=== PATIENT | female | born 1950 | race Caucasian/White ===

== ENCOUNTER 2020-01-10 06:43 | Outpatient (REF) | payer MEDICARE, SELFPAY ==
[2020-01-10 11:28] LABS: Hematocrit 40.5 % (37-47); Hemoglobin 13.7 g/dl (12.0-16.0); Mean Corpuscular HGB Conc 33.8 g/dl (31.0-35.0); Mean Corpuscular Hemoglobin 31.9 pg (27.0-33.0); Mean Corpuscular Volume 94.4 fL (80-98); Mean Platelet Volume 10.6 fL (9.4-12.3); Platelet Count 285 X10*3/uL (160-400); Red Blood Count 4.29 X10*6/uL (4.20-5.50); Red Cell Distribution Width 12.5 % (11.0-16.0); White Blood Count 5.2 X10*3/uL (4.8-10.8)
[2020-01-10 12:14] LABS: Thyroid Stimulating Hormone 0.75 mIU/mL (0.32-4.0)
[2020-01-10 12:15] LABS: Alanine Aminotransferase 33 U/L (0-31); Albumin Level 4.4 g/dL (3.5-5.0); Alkaline Phosphatase 100 U/L (39-117); Anion Gap 13 (12-20); Aspartate Amino Transferase 22 U/L (5-31); Bilirubin Total 0.7 mg/dL (0.0-1.0); Blood Urea Nitrogen 21 mg/dL (9-16); Calcium 8.8 mg/dL (8.4-10.2); Carbon Dioxide 25 mmol/L (22-29); Chloride 109 mmol/L (96-108); Cholesterol 178 mg/dL; Estimated Glomerular Filt Rate > 60; Glucose Fasting 116 mg/dL (60-99); HDL Cholesterol 44 mg/dL; LDL Cholesterol Calculated 110 mg/dl; Potassium 4.2 mmol/l (3.3-5.1); Sodium 143 mmol/L (135-145); Triglycerides 124 mg/dL
== END 2020-01-10 06:44 | disposition home or self-care (01) ==
LOC: HO.HMGCLDS 06:43
PROVIDERS: PCP Internal Medicine; Visit Provider Internal Medicine
DX: M65.341 Trigger finger, right ring finger (principal); I10 Essential (primary) hypertension; F17.200 Nicotine dependence, unspecified, uncomplicated
CPT/HCPCS: 36415; 80053; 80061; 84443; 85027

== ENCOUNTER 2020-07-03 06:46 | Outpatient (REF) | payer MEDICARE, SELFPAY ==
[2020-07-03 12:08] LABS: Estimated Average Glucose 114 mg/dL; Hemoglobin A1c % 5.6 %
[2020-07-03 12:16] LABS: Microalbum/Creatinine Ratio Ur 6.4 ug/mg cr
== END 2020-07-03 06:47 | disposition home or self-care (01) ==
LOC: HO.HMGCLDS 06:46
PROVIDERS: PCP Internal Medicine; Visit Provider Internal Medicine
DX: E78.5 Hyperlipidemia, unspecified (principal); I10 Essential (primary) hypertension; R73.9 Hyperglycemia, unspecified
CPT/HCPCS: 36415; 82043; 83036

== ENCOUNTER 2020-07-08 09:07 | Outpatient (REF) | payer MEDICARE, SELFPAY ==
--- NOTE | ~2020-07-08 | XR_ITS ---
EXAMINATION: XR SHOULDER, LEFT CLINICAL INFORMATION: Left shoulder pain COMPARISON: None TECHNIQUE: AP external rotation, Grashey, scapular Y, and axillary views of the left shoulder. FINDINGS: No fracture, dislocation or destructive process or erosive change. Acromioclavicular joint intact. XR/XR shoulder LT min 2V IMPRESSION: Unremarkable study.
== END 2020-07-08 09:08 | disposition home or self-care (01) ==
LOC: HO.HMGCX 09:07
PROVIDERS: PCP Internal Medicine; Visit Provider Internal Medicine
DX: M25.512 Pain in left shoulder (principal)
CPT/HCPCS: 73030

== ENCOUNTER 2020-10-20 06:49 | Outpatient (REF) | payer MEDICARE, SELFPAY ==
[2020-10-20 11:25] LABS: Alanine Aminotransferase 26 U/L (0-31); Alkaline Phosphatase 105 U/L (39-117); Anion Gap 12 (12-20); Aspartate Amino Transferase 19 U/L (5-31); Bilirubin Total 0.4 mg/dL (0.0-1.0); Blood Urea Nitrogen 15 mg/dL (9-16); Calcium 8.9 mg/dL (8.4-10.2); Carbon Dioxide 23 mmol/L (22-29); Chloride 111 mmol/L (96-108); Cholesterol 169 mg/dL; Estimated Glomerular Filt Rate > 60; Glucose Fasting 120 mg/dL (60-99); HDL Cholesterol 44 mg/dL; LDL Cholesterol Calculated 101 mg/dl; Potassium 4.2 mmol/L (3.3-5.1); Sodium 142 mmol/L (135-145); Total Protein 6.5 g/dL (6.5-8.0); Triglycerides 124 mg/dL
[2020-10-20 11:53] LABS: Thyroid Stimulating Hormone 0.76 uIU/mL (0.32-4.0)
== END 2020-10-20 06:50 | disposition home or self-care (01) ==
LOC: HO.HMGCLDS 06:49
PROVIDERS: PCP Internal Medicine; Visit Provider Internal Medicine
DX: E78.5 Hyperlipidemia, unspecified (principal); I10 Essential (primary) hypertension; R73.9 Hyperglycemia, unspecified
CPT/HCPCS: 36415; 80053; 80061; 84443

== ENCOUNTER 2021-04-18 08:18 | Outpatient (REF) | payer MEDICARE, SELFPAY ==
[2021-04-18 11:15] LABS: Hematocrit 41.7 % (37.0-47.0); Hemoglobin 13.9 g/dl (12.0-16.0); Mean Corpuscular HGB Conc 33.3 g/dl (31.0-35.0); Mean Corpuscular Hemoglobin 31.9 pg (27.0-33.0); Mean Corpuscular Volume 95.6 fL (80.0-98.0); Mean Platelet Volume 10.6 fL (9.4-12.3); Platelet Count 265 X10*3/uL (160-400); Red Blood Count 4.36 X10*6/uL (4.20-5.50); Red Cell Distribution Width 12.2 % (11.0-16.0); White Blood Count 5.5 X10*3/uL (4.8-10.8)
[2021-04-18 11:32] LABS: Alanine Aminotransferase 30 U/L (0-31); Albumin Level 4.2 g/dL (3.5-5.0); Alkaline Phosphatase 117 U/L (39-117); Anion Gap 11 (12-20); Aspartate Amino Transferase 19 U/L (5-31); Bilirubin Total 0.3 mg/dL (0.0-1.0); Blood Urea Nitrogen 18 mg/dL (9-16); Calcium 9.4 mg/dL (8.4-10.2); Carbon Dioxide 27 mmol/L (22-29); Chloride 109 mmol/L (96-108); Cholesterol 169 mg/dL; Estimated Glomerular Filt Rate > 60; Glucose Fasting 122 mg/dL (60-99); HDL Cholesterol 42 mg/dL; LDL Cholesterol Calculated 103 mg/dl; Potassium 4.4 mmol/L (3.3-5.1); Sodium 143 mmol/L (135-145); Total Protein 6.9 g/dL (6.5-8.0); Triglycerides 120 mg/dL
[2021-04-18 11:33] LABS: Estimated Average Glucose 114 mg/dL; Hemoglobin A1c % 5.6 %
[2021-04-18 11:52] LABS: Creatinine Urine 275.82 mg/dL; Microalbum/Creatinine Ratio Ur 4.7 ug/mg cr
== END 2021-04-18 08:19 | disposition home or self-care (01) ==
LOC: HO.HMGCLDS 08:18
PROVIDERS: PCP Internal Medicine; Visit Provider Internal Medicine
DX: I10 Essential (primary) hypertension (principal); E78.5 Hyperlipidemia, unspecified; R73.9 Hyperglycemia, unspecified
CPT/HCPCS: 36415; 80053; 80061; 82043; 83036; 85027

== ENCOUNTER 2021-12-05 07:42 | Outpatient (REF) | payer MEDICARE, SELFPAY ==
[2021-12-05 11:08] LABS: Hematocrit 40.2 % (37.0-47.0); Hemoglobin 13.5 g/dl (12.0-16.0); Mean Corpuscular HGB Conc 33.6 g/dl (31.0-35.0); Mean Corpuscular Hemoglobin 31.5 pg (27.0-33.0); Mean Corpuscular Volume 93.7 fL (80.0-98.0); Mean Platelet Volume 10.6 fL (9.4-12.3); Platelet Count 262 X10*3/uL (160-400); Red Blood Count 4.29 X10*6/uL (4.20-5.50); Red Cell Distribution Width 12.6 % (11.0-16.0)
[2021-12-05 11:33] LABS: Estimated Average Glucose 114 mg/dL; Hemoglobin A1c % 5.6 %
[2021-12-05 11:34] LABS: Alanine Aminotransferase 35 U/L (0-31); Albumin Level 4.1 g/dL (3.5-5.0); Alkaline Phosphatase 113 U/L (39-117); Anion Gap 14 (12-20); Aspartate Amino Transferase 21 U/L (5-31); Bilirubin Total 0.4 mg/dL (0.0-1.0); Blood Urea Nitrogen 22 mg/dL (9-16); Calcium 8.8 mg/dL (8.4-10.2); Carbon Dioxide 24 mmol/L (22-29); Chloride 108 mmol/L (96-108); Cholesterol 171 mg/dL; Estimated Glomerular Filt Rate > 60; Glucose Fasting 122 mg/dL (60-99); HDL Cholesterol 42 mg/dL; LDL Cholesterol Calculated 107 mg/dl; Potassium 4.4 mmol/L (3.3-5.1); Sodium 142 mmol/L (135-145); Total Protein 6.7 g/dL (6.5-8.0); Triglycerides 110 mg/dL
[2021-12-05 11:47] LABS: TSH reflex Free T4 0.69 uIU/mL (0.32-4.0)
== END 2021-12-05 07:43 | disposition home or self-care (01) ==
LOC: HO.HMGCLDS 07:42
PROVIDERS: PCP Internal Medicine; Visit Provider Internal Medicine
DX: E78.5 Hyperlipidemia, unspecified (principal); R73.9 Hyperglycemia, unspecified; I10 Essential (primary) hypertension
CPT/HCPCS: 36415; 80053; 80061; 83036; 84443; 85027

== ENCOUNTER 2022-06-10 08:43 | Outpatient (REF) | payer MEDICARE, SELFPAY ==
[2022-06-10 11:02] LABS: MANUAL DIFF FLAG NO
[2022-06-10 11:20] LABS: Basophils Percent Auto 0.6 % (0-2); Eosinophils Absolute Auto 0.2 X10*3/uL (0.0-0.4); Eosinophils Percent Auto 3.5 % (0-4); Hematocrit 42.9 % (37.0-47.0); Hemoglobin 14.1 g/dl (12.0-16.0); Imm Gran Abs Auto 0.01 X10*3/uL (0.00-0.03); Imm Gran Pct Auto 0.2 % (0.0-0.4); Lymphocytes Absolute Auto 2.2 X10*3/uL (1.2-4.9); Lymphocytes Percent Auto 40.5 % (20-40); Mean Corpuscular HGB Conc 32.9 g/dl (31.0-35.0); Mean Corpuscular Hemoglobin 31.3 pg (27.0-33.0); Mean Corpuscular Volume 95.1 fL (80.0-98.0); Mean Platelet Volume 10.5 fL (9.4-12.3); Monocytes Absolute Auto 0.5 X10*3/uL (0.1-1.2); Neutrophils Absolute Auto 2.5 x10*3/uL (2.0-8.3); Neutrophils Percent Auto 46.2 % (45-73); Platelet Count 277 X10*3/uL (160-400); Red Blood Count 4.51 X10*6/uL (4.20-5.50); Red Cell Distribution Width 12.3 % (11.0-16.0); White Blood Count 5.4 X10*3/uL (4.8-10.8)
[2022-06-10 11:30] LABS: Estimated Average Glucose 120 mg/dL; Hemoglobin A1C 152.2743 umol/L; Hemoglobin A1c % 5.8 %
[2022-06-10 11:57] LABS: Alanine Aminotransferase 36 U/L (0-31); Albumin Level 4.1 g/dL (3.5-5.0); Alkaline Phosphatase 116 U/L (39-117); Anion Gap 13 (12-20); Aspartate Amino Transferase 20 U/L (5-31); Bilirubin Total 0.6 mg/dL (0.0-1.0); Blood Urea Nitrogen 19 mg/dL (9-16); Calcium 8.9 mg/dL (8.4-10.2); Carbon Dioxide 26 mmol/L (22-29); Chloride 110 mmol/L (96-108); Cholesterol 170 mg/dL; Estimated Glomerular Filt Rate > 60; Glucose Fasting 141 mg/dL (60-99); HDL Cholesterol 39 mg/dL; LDL Cholesterol Calculated 105 mg/dl; Potassium 4.5 mmol/L (3.3-5.1); Sodium 144 mmol/L (135-145); Total Protein 6.6 g/dL (6.5-8.0); Triglycerides 130 mg/dL
== END 2022-06-10 08:44 | disposition home or self-care (01) ==
LOC: HO.HMGCLDS 08:43
PROVIDERS: PCP Internal Medicine; Visit Provider Internal Medicine
DX: E78.5 Hyperlipidemia, unspecified (principal); R73.9 Hyperglycemia, unspecified; I10 Essential (primary) hypertension
CPT/HCPCS: 36415; 80053; 80061; 83036; 85025

== ENCOUNTER 2022-12-09 08:34 | Outpatient (REF) | payer MEDICARE, SELFPAY ==
[2022-12-09 11:28] LABS: MANUAL DIFF FLAG NO
[2022-12-09 11:53] LABS: Basophils Percent Auto 0.6 % (0-2); Eosinophils Absolute Auto 0.2 X10*3/uL (0.0-0.4); Eosinophils Percent Auto 3.3 % (0-4); Hematocrit 41.7 % (37.0-47.0); Hemoglobin 14.3 g/dl (12.0-16.0); Imm Gran Abs Auto 0.01 X10*3/uL (0.00-0.03); Imm Gran Pct Auto 0.2 % (0.0-0.4); Lymphocytes Absolute Auto 2.3 X10*3/uL (1.2-4.9); Lymphocytes Percent Auto 41.7 % (20-40); Mean Corpuscular HGB Conc 34.3 g/dl (31.0-35.0); Mean Corpuscular Hemoglobin 32.4 pg (27.0-33.0); Mean Corpuscular Volume 94.6 fL (80.0-98.0); Mean Platelet Volume 10.5 fL (9.4-12.3); Monocytes Absolute Auto 0.5 X10*3/uL (0.1-1.2); Monocytes Percent Auto 9.8 % (2-11); Neutrophils Absolute Auto 2.4 x10*3/uL (2.0-8.3); Neutrophils Percent Auto 44.4 % (45-73); Platelet Count 251 X10*3/uL (160-400); Red Blood Count 4.41 X10*6/uL (4.20-5.50); Red Cell Distribution Width 12.2 % (11.0-16.0); White Blood Count 5.4 X10*3/uL (4.8-10.8)
[2022-12-09 12:08] LABS: Appearance Urine Cloudy; Color Urine Yellow; Glucose Urine UA Negative (Negative); Leukocyte Esterase Urine Negative (Negative); Nitrite Urine Negative (Negative); Specific Gravity - Urine >= 1.030 (1.005-1.025); Urine Blood Negative (Negative); Urine Ketones Negative (Negative); Urine Protein Negative (Neg-Trace)
[2022-12-09 12:14] LABS: Bacteria Urine None Seen (None Seen); Hyaline Casts Urine 0-2 /LPF (0-2); RBC Urine 0-2 /HPF (0-2); WBC Urine 0-5 /HPF (0-5)
[2022-12-09 12:14] LABS: Estimated Average Glucose 111 mg/dL; Hemoglobin A1c % 5.5 % (<6.0)
[2022-12-09 12:20] LABS: Alanine Aminotransferase 30 U/L (0-31); Albumin Level 4.1 g/dL (3.5-5.0); Alkaline Phosphatase 103 U/L (39-117); Anion Gap 12 (12-20); Aspartate Amino Transferase 21 U/L (5-31); Bilirubin Total 0.5 mg/dL (0.0-1.0); Blood Urea Nitrogen 20 mg/dL (9-16); Carbon Dioxide 23 mmol/L (22-29); Chloride 110 mmol/L (96-108); Estimated Glomerular Filt Rate > 60; Glucose Fasting 130 mg/dL (60-99); Potassium 4.3 mmol/L (3.3-5.1); Sodium 141 mmol/L (135-145)
[2022-12-09 12:46] LABS: Creatinine Urine 293.37 mg/dL; Microalbum/Creatinine Ratio Ur 3.7 ug/mg cr (<30)
== END 2022-12-09 08:35 | disposition home or self-care (01) ==
LOC: HO.HMGCLDS 08:34
PROVIDERS: PCP Internal Medicine; Visit Provider Internal Medicine
DX: I10 Essential (primary) hypertension (principal); R73.9 Hyperglycemia, unspecified; E78.5 Hyperlipidemia, unspecified
CPT/HCPCS: 36415; 80053; 81001; 82043; 82570; 83036; 85025

== ENCOUNTER 2022-12-13 08:42 | Outpatient (AMB) | payer MEDICARE, SELFPAY ==
[2022-12-13 08:43] VITALS: BP 136/84; PULSE 78; O2SAT 96; BMI 35.1
--- NOTE | 2022-12-13 08:43 | A.OFFPC_ITS ---
Vital Signs 12/13/22 08:43 Height 5 ft 2 in Weight 192 lb BMI 35.1 BP 136/84 Blood Pressure Location Lt brachial Position Sitting Pulse 78 Pulse Source Pulse Oximeter Pulse Oximetry (%) 96 Oxygen Delivery Method Room Air Intake Visit Reasons: 6m folow up HTN Intake Note: Pt is here today for 6 months follow up visit on HTN. Allergies No Known Allergies Allergy (Verified 12/13/22 08:45) Medication List - Last Reconciled 12/13/22 by Shelly Lopez MD atorvastatin 40 mg PO DAILY lisinopril 30 mg PO DAILY metoprolol succinate ER 50 mg PO DAILY Tobacco use date assessed: 06/16/22 Fall risk assessment: No Falls in past year Last assessed Fall Risk: 12/13/22 Dental Screening Dental Screen Date: 12/13/22 Did you have a dental visit in the last 12 months?: No Did you have a dental problem in the last 6 months where you did not have access to dental care?: No Was dental information given to patient?: Patient declined HPI 6m folow up HTN HPI Details Patient presents for the follow-up on hypertension hyperlipidemia stable on current medications. [facility] Medical History DJD (degenerative joint disease), cervical Dysthymia HTN (hypertension) Hyperglycemia Hyperlipemia Mammogram normal Normal colonoscopy Shoulder pain, left Surgical History History of hysterectomy Family History Father No problems noted. Mother History of CVA (cerebrovascular accident) Daughter No problems noted. Daughter No problems noted. Social History Housing: House Alcohol intake: never Patient Tobacco Use Status: Current everyday Tobacco user Cigarettes Per Day: 12 Years Smoked: started when 23 e-Cigarette/Vaping Use: Never Used Second Hand Smoke Exposure: No Current occupational status: retired Cognitive needs: No Hearing needs: No Vision needs: Yes Questionnaire Thrive Questionnaire Date Thrive assessed: 06/16/22 MANNIE-7 AMB Questionnaire MANNIE-7 Date MANNIE - 7 assessed: 06/16/22 Source: Developed by Drs. Petey Hernandez, AnabelTha Hendricks and colleagues, with an educational rand from [employer]. Review of Systems Const All systems reviewed & are unremarkable except as noted in HPI and below Reports no additional complaints Eyes Reports no additional complaints ENT Reports no additional complaints Card Reports no additional complaints Resp Reports no additional complaints GI Reports no additional complaints Reports no additional complaints Physical exam (Primary Care) Vital Signs: Last Vital Signs Pulse 78 12/13/22 08:43 BP 136/84 12/13/22 08:43 Pulse Ox 96 12/13/22 08:43 Oxygen Delivery Method Room Air 12/13/22 08:43 BMI result Body Mass Index 35.1 Tobacco/Smoking Status: Tobacco use Status Tobacco use date assessed 06/16/22 12/13/22 08:50 Patient Tobacco Use Status Current everyday Tobacco 12/13/22 08:50 Tobacco use type 10/23/20 13:43 e-Cigarette/Vaping Use Never Used 12/13/22 08:50 Thrive Assessment: Date of Thrive Assessment Date Thrive assessed 06/16/22 12/13/22 08:50 Const General: no acute distress HENMT General nose exam: Normal external nose present Face and sinus: Yes normal facial exam Resp Effort & Inspection: normal respiratory effort Auscultation: clear to auscultation bilaterally Cardio Rhythm: regular rhythm Heart sounds: S1 normal heart sound present and S2 normal heart sound present GI Inspection: Yes normal to inspection Assessment and Plan Assessment & Plan (1) Hyperglycemia: Comment: A1C is 5.6, cont ADA diet, exercise Code(s): R73.9 - Hyperglycemia, unspecified Plan: Continue ADA diet increase physical activity weight loss discussed with the patient . follow-up in 6 months with a fasting labs before (2) HTN (hypertension): Code(s): I10 - Essential (primary) hypertension Plan: Continue current medications (3) Hyperlipemia: Code(s): E78.5 - Hyperlipidemia, unspecified Plan: Continue statin Orders: Orders Comprehensive [place]. Panel Fast 6 Months E78.5 - Hyperlipidemia, unspecified, I10 - Essential (primary) hypertension, R73.9 - Hyperglycemia, unspecified Lipid Panel 6 Months E78.5 - Hyperlipidemia, unspecified, I10 - Essential (primary) hypertension, R73.9 - Hyperglycemia, unspecified TSH reflex Free T4 6 Months E78.5 - Hyperlipidemia, unspecified, I10 - Essential (primary) hypertension, R73.9 - Hyperglycemia, unspecified Complete Blood Count Auto Diff 6 Months E78.5 - Hyperlipidemia, unspecified, I10 - Essential (primary) hypertension, R73.9 - Hyperglycemia, unspecified Hemoglobin A1c 6 Months E78.5 - Hyperlipidemia, unspecified, I10 - Essential (primary) hypertension, R73.9 - Hyperglycemia, unspecified Microalbumin, Random (w Creat) 6 Months E78.5 - Hyperlipidemia, unspecified, I10 - Essential (primary) hypertension, R73.9 - Hyperglycemia, unspecified Medications: Refilled atorvastatin 40 mg PO DAILY 90 tabs 3RF metoprolol succinate ER 50 mg PO DAILY 90 tabs 3RF lisinopril 30 mg PO DAILY 90 tabs 3RF Coding Level of Care Code Est Pt Level 4 (07400) Diagnoses Hyperglycemia R73.9 HTN (hypertension) I10 Hyperlipemia E78.5
== END 2022-12-13 09:18 | disposition home or self-care (01) ==
PROVIDERS: Visit Provider Internal Medicine
DX: R73.9 Hyperglycemia, unspecified (principal); I10 Essential (primary) hypertension; E78.5 Hyperlipidemia, unspecified
CPT/HCPCS: 99214

== ENCOUNTER 2023-06-11 09:25 | Outpatient (REF) | payer MEDICARE, SELFPAY ==
[2023-06-11 11:55] LABS: MANUAL DIFF FLAG NO
[2023-06-11 12:00] LABS: Basophils Percent Auto 0.4 % (0-2); Eosinophils Absolute Auto 0.2 X10*3/uL (0.0-0.4); Eosinophils Percent Auto 3.6 % (0-4); Hemoglobin 13.1 g/dl (12.0-16.0); Imm Gran Abs Auto 0.02 X10*3/uL (0.00-0.03); Imm Gran Pct Auto 0.4 % (0.0-0.4); Lymphocytes Absolute Auto 1.9 X10*3/uL (1.2-4.9); Lymphocytes Percent Auto 39.9 % (20-40); Mean Corpuscular HGB Conc 34.5 g/dl (31.0-35.0); Mean Corpuscular Hemoglobin 31.6 pg (27.0-33.0); Mean Corpuscular Volume 91.6 fL (80.0-98.0); Mean Platelet Volume 10.4 fL (9.4-12.3); Monocytes Absolute Auto 0.5 X10*3/uL (0.1-1.2); Monocytes Percent Auto 9.7 % (2-11); Neutrophils Absolute Auto 2.2 x10*3/uL (2.0-8.3); Platelet Count 245 X10*3/uL (160-400); Red Blood Count 4.15 X10*6/uL (4.20-5.50); Red Cell Distribution Width 12.6 % (11.0-16.0); White Blood Count 4.7 X10*3/uL (4.8-10.8)
[2023-06-11 12:09] LABS: Estimated Average Glucose 114 mg/dL; Hemoglobin A1c % 5.6 % (<6.0)
[2023-06-11 12:45] LABS: Alanine Aminotransferase 39 U/L (0-31); Albumin Level 3.8 g/dL (3.5-5.0); Alkaline Phosphatase 97 U/L (39-117); Anion Gap 12 (12-20); Aspartate Amino Transferase 21 U/L (5-31); Bilirubin Total 0.3 mg/dL (0.0-1.0); Blood Urea Nitrogen 24 mg/dL (9-16); Carbon Dioxide 25 mmol/L (22-29); Chloride 111 mmol/L (96-108); Cholesterol 124 mg/dL (<200); Estimated Glomerular Filt Rate > 60; Glucose Fasting 118 mg/dL (60-99); HDL Cholesterol 33 mg/dL (>40); LDL Cholesterol Calculated 73 mg/dL (<100); Sodium 144 mmol/L (135-145); TSH reflex Free T4 0.21 uIU/mL (0.32-4.0); Total Protein 6.7 g/dL (6.5-8.0); Triglycerides 92 mg/dL (<150)
[2023-06-11 13:05] LABS: Creatinine Urine 250.57 mg/dL; Microalbum/Creatinine Ratio Ur 6.3 ug/mg cr (<30)
[2023-06-11 13:29] LABS: Free T4 (Free Thyroxine) 0.78 ng/dL (0.71-1.85)
== END 2023-06-11 09:26 | disposition home or self-care (01) ==
LOC: HO.HMGCLDS 09:25
PROVIDERS: PCP Internal Medicine; Visit Provider Internal Medicine
DX: R73.9 Hyperglycemia, unspecified (principal); I10 Essential (primary) hypertension; E78.5 Hyperlipidemia, unspecified
CPT/HCPCS: 36415; 80053; 80061; 82043; 82570; 83036; 84439; 84443; 85025

== ENCOUNTER 2023-06-15 08:07 | Outpatient (AMB) | payer MEDICARE, SELFPAY ==
--- NOTE | 2023-06-15 08:33 | MHC.PC.OV ---
Vital Signs 06/15/23 08:36 Height 5 ft 2 in Weight 190 lb BMI 34.7 BP 120/80 Blood Pressure Location Lt brachial Position Sitting Pulse 82 Pulse Source Pulse Oximeter Pulse Oximetry (%) 95 Oxygen Delivery Method Room Air Intake Visit Reasons: Annual PE Intake Note: Pt is here today for PE. Allergies No Known Allergies Allergy (Verified 06/15/23 08:37) Medication List - Last Reconciled 06/15/23 by Shelly Lopez MD atorvastatin 40 mg PO DAILY lisinopril 30 mg PO DAILY metoprolol succinate ER 50 mg PO DAILY Tobacco use date assessed: 06/15/23 Fall risk assessment: No Falls in past year Last assessed Fall Risk: 06/15/23 Dental Screening Dental Screen Date: 06/15/23 Did you have a dental visit in the last 12 months?: No Did you have a dental problem in the last 6 months where you did not have access to dental care?: No Was dental information given to patient?: Patient declined HPI Annual PE HPI Details Pt is for PE. [facility] Medical History (Updated 06/15/23 @ 09:08 by Shelly Lopez MD) Dysthymia Shoulder pain, left DJD (degenerative joint disease), cervical Normal colonoscopy Mammogram normal Hyperglycemia HTN (hypertension) Hyperlipemia Surgical History History of hysterectomy Family History Father No problems noted. Mother History of CVA (cerebrovascular accident) Daughter No problems noted. Daughter No problems noted. Social History Housing: House Alcohol intake: never Patient Tobacco Use Status: Current someday Tobacco user Cigarettes Per Day: 12 Years Smoked: started when 23 e-Cigarette/Vaping Use: Never Used Second Hand Smoke Exposure: No Current occupational status: retired Cognitive needs: No Hearing needs: No Vision needs: Yes Questionnaire PHQ-9 Over the last 2 weeks, how often have you been bothered by any of the following problems? 1. Little interest or pleasure in doing things: not at all 2. Feeling down, depressed, or hopeless: not at all 3. Trouble falling or staying asleep, or sleeping too much: not at all 4. Feeling tired or having little energy: not at all 5. Poor appetite or overeating: not at all 6. Feeling bad about yourself - or that you are a failure or have let yourself or your family down: not at all 7. Trouble concentrating on things, such as reading the newspaper or watching television: not at all 8. Moving or speaking so slowly that other people could have noticed. Or the opposite - being so fidgety or restless that you have been moving around a lot more than usual: not at all 9. Thoughts that you would be better off or of hurting yourself in some way: not at all Total score: 0 Depression Screening Interpretation: Negative Depression Screening Done: Yes Source: Developed by Drs. Petey Hernandez, Anabel Cr, Tha Townsend and colleagues, with an educational rand from [employer]. Thrive Questionnaire Date Thrive assessed: 06/15/23 I am a: Patient What is your living situation today?: I have a steady place to live Within the past 12 months, did the food you bought not last and you didn't have the money to get more?: Never true Within the past 12 months, did you worry whether your food would run out before you got money to buy more?: Never true Do you have trouble paying for medicines?: No Do you have trouble getting transportation to medical appointments?: No Do you have trouble paying your heating and electricity bill?: No Do you have trouble taking care of your child, family member or friend?: No Do you have trouble with day-to-day activities such as bathing, preparing meals, shopping, managing finances, etc.?: No Are you currently unemployed and looking for a job?: No Are you interested in more education?: No Please select the resources that you would like help with: None Currently or been in a relationship where the following occur: no concerns reported THRIVE Score: 0 AUDIT C Alcohol Use Questionnaire (AUDIT-C) 1. How often do you have a drink containing alcohol?: Never 3. How often do you have six or more drinks on one occasion?: Never Total Score: 0 MANNIE-7 AMB Questionnaire MANNIE-7 Date MANNIE - 7 assessed: 06/15/23 Feeling nervous, anxious, or on edge: 0 = Not at all Not being able to stop or control worryin = Not at all Worrying too much about different things: 0 = Not at all Trouble relaxin = Not at all Being so restless that it is hard to sit still: 0 = Not at all Becoming easily annoyed or irritable: 0 = Not at all Feeling afraid as if something awful might happen: 0 = Not at all Total MANNIE-7 score (0-4 normal; 5-9 mild; 10-14 moderate; 15-21 severe): 0 Source: Developed by Drs. Petey Hernandez, Anabel Cr, Tha Townsend and colleagues, with an educational rand from [employer]. MANNIE-7 Assessment Billing MANNIE-7 Assessment Tool: MANNIE-7 Assessment 50075 Review of Systems Const All systems reviewed & are unremarkable except as noted in HPI and below Reports no additional complaints Eyes Reports no additional complaints ENT Reports no additional complaints Card Reports no additional complaints Resp Reports no additional complaints GI Reports no additional complaints Reports no additional complaints Physical exam (Primary Care) Vital Signs: Last Vital Signs Pulse 82 06/15/23 08:36 BP 138/80 06/15/23 08:36 Pulse Ox 95 06/15/23 08:36 Oxygen Delivery Method Room Air 06/15/23 08:36 BMI result Body Mass Index 34.7 Tobacco/Smoking Status: Tobacco use Status Tobacco use date assessed 06/15/23 06/15/23 08:41 Patient Tobacco Use Status Current someday Tobacco 06/15/23 08:41 Tobacco use type 12/13/22 09:18 e-Cigarette/Vaping Use Never Used 06/15/23 08:41 PHQ-9: PHQ-9 Score PHQ-9: Total score 0 06/15/23 08:41 Depression Screening Interpretation: Negative Thrive Assessment: Date of Thrive Assessment Date Thrive assessed 06/15/23 06/15/23 08:41 Currently or been in a relationship where the following occur: no concerns reported Const General: no acute distress HENMT Head: Yes normal to inspection Ears: hearing grossly normal bilaterally Eyes General: appearance normal, both eyes and all related structures Neck Neck: Yes no lymphadenopathy and Yes supple Resp Effort & Inspection: normal respiratory effort Auscultation: clear to auscultation bilaterally Cardio Rhythm: regular rhythm Heart sounds: S1 normal heart sound present and S2 normal heart sound present GI Inspection: Yes normal to inspection Palpation (GI): Soft to palpation Percussion: Yes normal to percussion Auscultation: normal bowel sounds Assessment and Plan Assessment & Plan (1) HTN (hypertension): Code(s): I10 - Essential (primary) hypertension Plan: CONT MEDS (2) Hyperlipemia: Code(s): E78.5 - Hyperlipidemia, unspecified Plan: cont statin (3) Postmenopausal: Code(s): Z78.0 - Asymptomatic menopausal state Plan: check DEXA (4) Mammogram normal: Comment: 2022 (5) Annual physical exam: Code(s): Z00.00 - Encounter for general adult medical examination without abnormal findings Plan: Well-balanced diet regular exercise weight loss discussed with patient. She will repeat TSH in 3 months and will follow-up in 6 months with a fasting labs before Orders: Orders TSH reflex Free T4 3 Months E78.5 - Hyperlipidemia, unspecified, I10 - Essential (primary) hypertension Lipid Panel 6 Months E78.5 - Hyperlipidemia, unspecified, I10 - Essential (primary) hypertension, R73.9 - Hyperglycemia, unspecified TSH reflex Free T4 6 Months E78.5 - Hyperlipidemia, unspecified, I10 - Essential (primary) hypertension, R73.9 - Hyperglycemia, unspecified XR DEXA axial skeleton Today Z78.0 - Asymptomatic menopausal state Comprehensive [place]. Panel Fast 6 Months E78.5 - Hyperlipidemia, unspecified, I10 - Essential (primary) hypertension, R73.9 - Hyperglycemia, unspecified Complete Blood Count Auto Diff 6 Months E78.5 - Hyperlipidemia, unspecified, I10 - Essential (primary) hypertension, R73.9 - Hyperglycemia, unspecified Triiodothyronine T3 Free 3 Months E78.5 - Hyperlipidemia, unspecified, I10 - Essential (primary) hypertension, R73.9 - Hyperglycemia, unspecified Hemoglobin A1c 6 Months R73.9 - Hyperglycemia, unspecified Referrals Gastroenterology Referral Z00.00 - Encounter for general adult medical examination without abnormal findings Coding Level of Care Code Est Pt Prev Care >65y(48164) Diagnoses HTN (hypertension) I10 Hyperlipemia E78.5 Postmenopausal Z78.0 Mammogram normal Annual physical exam Z00.00 Additional Codes MANNIE-7 Assessment Billing - MANNIE-7 Assessment Tool: MANNIE-7 Assessment 51100 ([id number])
[2023-06-15 08:36] VITALS: BP 120/80; PULSE 82; O2SAT 95; BMI 34.7
== END 2023-06-15 09:01 | disposition home or self-care (01) ==
PROVIDERS: PCP Internal Medicine; Visit Provider Internal Medicine
DX: I10 Essential (primary) hypertension (principal); E78.5 Hyperlipidemia, unspecified; Z78.0 Asymptomatic menopausal state; Z00.00 Encounter for general adult medical examination without abnormal findings
CPT/HCPCS: 99397

== ENCOUNTER 2023-06-24 08:18 | Outpatient (REF) | payer MEDICARE, SELFPAY ==
--- NOTE | ~2023-06-24 | MM_ITS ---
EXAMINATION: BONE DENSITOMETRY CLINICAL INDICATION: Menopause. COMPARISON: This is the patient's baseline examination. TECHNIQUE: Using a Fixed - [employer] DXA System (software version: 13.1) manufactured by [employer], dual-energy x-ray absorptiometry was performed of the lumbar spine and left hip. The images are of good technical quality. Summary results are attached. FINDINGS: LEFT FEMUR, NECK: BMD 0.824 g/cm2, Z-score -0.3, T-score -1.5, osteopenia. LEFT FEMUR, TOTAL: BMD 0.936 g/cm2, Z-score 0.4, T-score -0.6, normal. AP SPINE L1-L4: BMD 0.903 g/cm2, Z-score -1.4, T-score -2.3, osteopenia. IDENTIFIED RISK FACTORS: Menopause, hysterectomy, bilateral oophorectomy. HISTORY OF FRACTURE: None listed. MEDICATIONS: Calcium or multivitamin. Vitamin D. MM/XR DEXA axial skeleton IMPRESSION: 1. DIAGNOSIS: Osteopenia based on the lowest T-score value of -2.3 in the lumbar spine applying World Health Organization criteria. 2. 10-YEAR FRACTURE RISK PREDICTION, FRAX: Major osteoporotic fracture (clinical spine, forearm, hip or shoulder) 9.4%. Hip fracture 1.4%. 3. Treatment Recommendations: NOF guidelines recommend consideration for treatment in postmenopausal women and men age 50 and older presenting with the following: -A hip or vertebral (clinical or morphometric) fracture. -T-score less than or equal to -2.5 at the femoral neck or spine after appropriate evaluation to exclude secondary causes. -Low bone mass at the hip or spine and a 10-year fracture probability by FRAX of greater than or equal to 3% for hip fracture or greater than or equal to 20% for major osteoporotic fracture based on the [place] adapted WHO algorithm. 4. Other Recommendations: All treatment decisions require clinical judgment and consideration of individual patient factors, including patient preferences, comorbidities, previous drug use, risk factors not captured in the FRAX model (e.g. frailty, falls, vitamin D deficiency, increased bone turnover, interval significant decline in bone density) and possible under or overestimation of fracture risk by FRAX. Additional medical evaluation for secondary cause of low bone mineral density may be appropriate. FUTURE SCAN RECOMMENDATION: People with diagnosed cases of osteoporosis or at high risk for fracture should have regular bone mineral density tests. For patients eligible for Medicare, routine testing is allowed once every 2 years. The testing frequency can be increased to one year for patients who have rapidly progressing disease, those who are receiving or discontinuing medical therapy to restore bone mass, or have additional risk factors.
== END 2023-06-24 08:19 | disposition home or self-care (01) ==
LOC: HO.MAMMO 08:18
PROVIDERS: PCP Internal Medicine; Visit Provider Internal Medicine
DX: Z13.820 Encounter for screening for osteoporosis (principal); Z78.0 Asymptomatic menopausal state
CPT/HCPCS: 77080

== ENCOUNTER 2023-12-10 08:40 | Outpatient (REF) | payer MEDICARE, SELFPAY ==
[2023-12-10 11:07] LABS: MANUAL DIFF FLAG NO
[2023-12-10 11:15] LABS: Basophils Percent Auto 0.7 % (0-2); Eosinophils Absolute Auto 0.3 X10*3/uL (0.0-0.4); Eosinophils Percent Auto 6.6 % (0-4); Hematocrit 38.4 % (37.0-47.0); Hemoglobin 13.3 g/dl (12.0-16.0); Lymphocytes Absolute Auto 1.9 X10*3/uL (1.2-4.9); Mean Corpuscular HGB Conc 34.6 g/dl (31.0-35.0); Mean Corpuscular Hemoglobin 32.7 pg (27.0-33.0); Mean Corpuscular Volume 94.3 fL (80.0-98.0); Mean Platelet Volume 10.1 fL (9.4-12.3); Monocytes Absolute Auto 0.4 X10*3/uL (0.1-1.2); Neutrophils Absolute Auto 1.8 x10*3/uL (2.0-8.3); Neutrophils Percent Auto 39.7 % (45-73); Platelet Count 245 X10*3/uL (160-400); Red Blood Count 4.07 X10*6/uL (4.20-5.50); Red Cell Distribution Width 12.6 % (11.0-16.0); White Blood Count 4.4 X10*3/uL (4.8-10.8)
[2023-12-10 11:24] LABS: Estimated Average Glucose 117 mg/dL; Hemoglobin A1c % 5.7 % (<6.0)
[2023-12-10 11:30] LABS: Alanine Aminotransferase 35 U/L (0-31); Albumin Level 3.9 g/dL (3.5-5.0); Alkaline Phosphatase 94 U/L (39-117); Anion Gap 12 (12-20); Aspartate Amino Transferase 23 U/L (5-31); Bilirubin Total 0.4 mg/dL (0.0-1.0); Blood Urea Nitrogen 18 mg/dL (9-16); Calcium 9.2 mg/dL (8.4-10.2); Carbon Dioxide 25 mmol/L (22-29); Chloride 111 mmol/L (96-108); Cholesterol 160 mg/dL (<200); Estimated Glomerular Filt Rate > 60; Glucose Fasting 127 mg/dL (60-99); HDL Cholesterol 43 mg/dL (>40); LDL Cholesterol Calculated 100 mg/dL (<100); Potassium 3.9 mmol/L (3.3-5.1); Sodium 144 mmol/L (135-145); Total Protein 6.8 g/dL (6.5-8.0); Triglycerides 87 mg/dL (<150)
[2023-12-10 11:47] LABS: TSH reflex Free T4 0.99 uIU/mL (0.32-4.0)
[2023-12-12 09:49] LABS: Triiodothyronine T3 Free 3.4 pg/mL (2.3-4.2)
== END 2023-12-10 08:41 | disposition home or self-care (01) ==
LOC: HO.HMGCLDS 08:40
PROVIDERS: PCP Internal Medicine; Visit Provider Internal Medicine
DX: R73.9 Hyperglycemia, unspecified (principal); I10 Essential (primary) hypertension; E78.5 Hyperlipidemia, unspecified
CPT/HCPCS: 36415; 80053; 80061; 83036; 84443; 84481; 85025

== ENCOUNTER 2023-12-12 11:01 | Outpatient (AMB) | payer MEDICARE, SELFPAY ==
[2023-12-12 11:27] VITALS: BP 136/80; PULSE 78; O2SAT 95; BMI 35.8
--- NOTE | 2023-12-12 11:27 | MHC.PC.OV ---
Vital Signs 12/12/23 11:27 Height 5 ft 2 in Weight 196 lb BMI 35.8 BP 136/80 Blood Pressure Location Lt brachial Position Sitting Pulse 78 Pulse Source Pulse Oximeter Pulse Oximetry (%) 95 Oxygen Delivery Method Room Air Intake Visit Reasons: 6 month follow up Intake Note: Pt is here today for 6 months follow up visit. Pt states that she has been having cough congestion since last week. Allergies No Known Allergies Allergy (Verified 12/12/23 11:28) Tobacco use date assessed: 12/12/23 Fall risk assessment: No Falls in past year Last assessed Fall Risk: 12/12/23 Dental Screening Dental Screen Date: 12/12/23 Did you have a dental visit in the last 12 months?: No Did you have a dental problem in the last 6 months where you did not have access to dental care?: No Was dental information given to patient?: Patient declined HPI 6 month follow up HPI Details Pt presents for the follow-up on hypertension hyperlipidemia controlled on current medications. She complains of sore throat congestion sinus pressure productive cough for 5 days. Patient denies fever chills pleurisy [facility] Medical History (Updated 12/12/23 @ 12:14 by Shelly Lopez MD) Dysthymia Shoulder pain, left DJD (degenerative joint disease), cervical Normal colonoscopy Mammogram normal Hyperglycemia HTN (hypertension) Hyperlipemia Surgical History History of hysterectomy Family History Father No problems noted. Mother History of CVA (cerebrovascular accident) Daughter No problems noted. Daughter No problems noted. Social History Housing: House Alcohol intake: never Patient Tobacco Use Status: Current someday Tobacco user Cigarettes Per Day: 12 Years Smoked: started when 23 e-Cigarette/Vaping Use: Never Used Second Hand Smoke Exposure: No service: No Current occupational status: retired Cognitive needs: No Hearing needs: No Vision needs: Yes Questionnaire Thrive Questionnaire Date Thrive assessed: 06/15/23 MANNIE-7 AMB Questionnaire MANNIE-7 Date MANNIE - 7 assessed: 06/15/23 Source: Developed by Drs. Petey Hernandez, Anabel Tha Cottrell and colleagues, with an educational rand from [employer]. Review of Systems Const All systems reviewed & are unremarkable except as noted in HPI and below Card Reports no additional complaints Resp Reports no additional complaints GI Reports no additional complaints Physical exam (Primary Care) Vital Signs: Last Vital Signs Pulse 78 12/12/23 11:27 BP 136/80 12/12/23 11:27 Pulse Ox 95 12/12/23 11:27 Oxygen Delivery Method Room Air 12/12/23 11:27 BMI result Body Mass Index 35.8 Tobacco/Smoking Status: Tobacco use Status Tobacco use date assessed 12/12/23 12/12/23 11:35 Patient Tobacco Use Status Current someday Tobacco 12/12/23 11:28 Tobacco use type 12/13/22 09:18 e-Cigarette/Vaping Use Never Used 12/12/23 11:28 Thrive Assessment: Date of Thrive Assessment Date Thrive assessed 06/15/23 12/12/23 11:28 Const General: no acute distress HENMT Head: Yes normal to inspection Ears: TM's normal bilaterally Face and sinus: Yes sinus tenderness Throat: Yes posterior oropharynx abnormal and Yes postnasal drainage Resp Effort & Inspection: normal respiratory effort Auscultation: diminished lung sounds Cardio Rhythm: regular rhythm Heart sounds: S1 normal heart sound present and S2 normal heart sound present Assessment and Plan Assessment & Plan (1) Hyperlipemia: Code(s): E78.5 - Hyperlipidemia, unspecified Plan: Continue statin (2) HTN (hypertension): Code(s): I10 - Essential (primary) hypertension Plan: Continue current medications (3) Hyperglycemia: Comment: A1C is 5.6, cont ADA diet, exercise Code(s): R73.9 - Hyperglycemia, unspecified Plan: A1c is 5.7, ADA diet increase exercise weight loss discussed with the patient return in 6 months with a fasting labs before (4) Annual physical exam: Code(s): Z00.00 - Encounter for general adult medical examination without abnormal findings (5) Sinusitis: Code(s): J32.9 - Chronic sinusitis, unspecified Plan: Z-Vidal is prescribed and supportive care discussed with the patient Orders: Orders Comprehensive [place]. Panel Fast 6 Months E78.5 - Hyperlipidemia, unspecified, I10 - Essential (primary) hypertension, R73.9 - Hyperglycemia, unspecified, Z00.00 - Encounter for general adult medical examination without abnormal findings Complete Blood Count Auto Diff 6 Months E78.5 - Hyperlipidemia, unspecified, I10 - Essential (primary) hypertension, R73.9 - Hyperglycemia, unspecified, Z00.00 - Encounter for general adult medical examination without abnormal findings Hemoglobin A1c 6 Months E78.5 - Hyperlipidemia, unspecified, I10 - Essential (primary) hypertension, R73.9 - Hyperglycemia, unspecified, Z00.00 - Encounter for general adult medical examination without abnormal findings Lipid Panel 6 Months E78.5 - Hyperlipidemia, unspecified, I10 - Essential (primary) hypertension, R73.9 - Hyperglycemia, unspecified, Z00.00 - Encounter for general adult medical examination without abnormal findings Microalbumin, Random (w Creat) 6 Months E78.5 - Hyperlipidemia, unspecified, I10 - Essential (primary) hypertension, R73.9 - Hyperglycemia, unspecified, Z00.00 - Encounter for general adult medical examination without abnormal findings Medications: New azithromycin For 250 mg dose pack: take 500 mg today (day 1), then 250 mg for 4 days (days 2-5) PO 6 tabs 0RF Coding Level of Care Code Est Pt Level 4 (20805) Diagnoses Hyperlipemia E78.5 HTN (hypertension) I10 Hyperglycemia R73.9 Annual physical exam Z00.00 Sinusitis J32.9
== END 2023-12-12 12:13 | disposition home or self-care (01) ==
PROVIDERS: PCP Internal Medicine; Visit Provider Internal Medicine
DX: E78.5 Hyperlipidemia, unspecified (principal); I10 Essential (primary) hypertension; R73.9 Hyperglycemia, unspecified; Z00.00 Encounter for general adult medical examination without abnormal findings; J32.9 Chronic sinusitis, unspecified

== ENCOUNTER → 2023-12-12 11:01 | Outpatient (BNVA) | payer MEDICARE, SELFPAY | PROVIDERS: PCP Internal Medicine; Visit Provider Internal Medicine | DX: Z00.00 Encounter for general adult medical examination without abnormal findings (principal); E78.5 Hyperlipidemia, unspecified; R73.9 Hyperglycemia, unspecified; I10 Essential (primary) hypertension; J32.9 Chronic sinusitis, unspecified | CPT/HCPCS: 99212 ==

== ENCOUNTER 2024-06-21 08:47 | Outpatient (REF) | payer MEDICARE, SELFPAY ==
[2024-06-21 10:00] LABS: MANUAL DIFF FLAG NO
[2024-06-21 10:06] LABS: Basophils Absolute Auto 0.1 X10*3/uL (0.0-0.2); Basophils Percent Auto 0.8 % (0-2); Eosinophils Absolute Auto 0.3 X10*3/uL (0.0-0.4); Hematocrit 40.8 % (37.0-47.0); Imm Gran Abs Auto 0.01 X10*3/uL (0.00-0.03); Imm Gran Pct Auto 0.2 % (0.0-0.4); Lymphocytes Absolute Auto 2.8 X10*3/uL (1.2-4.9); Lymphocytes Percent Auto 42.8 % (20-40); Mean Corpuscular HGB Conc 34.3 g/dl (31.0-35.0); Mean Corpuscular Hemoglobin 31.9 pg (27.0-33.0); Mean Corpuscular Volume 92.9 fL (80.0-98.0); Mean Platelet Volume 10.7 fL (9.4-12.3); Monocytes Absolute Auto 0.6 X10*3/uL (0.1-1.2); Monocytes Percent Auto 8.7 % (2-11); Neutrophils Absolute Auto 2.8 x10*3/uL (2.0-8.3); Neutrophils Percent Auto 43.5 % (45-73); Platelet Count 270 X10*3/uL (160-400); Red Blood Count 4.39 X10*6/uL (4.20-5.50); Red Cell Distribution Width 12.1 % (11.0-16.0); White Blood Count 6.5 X10*3/uL (4.8-10.8)
[2024-06-21 10:33] LABS: Alanine Aminotransferase 56 U/L (0-31); Albumin Level 4.1 g/dL (3.5-5.0); Alkaline Phosphatase 126 U/L (39-117); Anion Gap 12 (12-20); Aspartate Amino Transferase 28 U/L (5-31); Bilirubin Total 0.4 mg/dL (0.0-1.0); Blood Urea Nitrogen 16 mg/dL (9-16); Calcium 8.9 mg/dL (8.4-10.2); Carbon Dioxide 25 mmol/L (22-29); Chloride 112 mmol/L (96-108); Cholesterol 165 mg/dL (<200); Estimated Glomerular Filt Rate > 60; Glucose Fasting 155 mg/dL (60-99); HDL Cholesterol 40 mg/dL (>40); LDL Cholesterol Calculated 94 mg/dL (<100); Potassium 4.5 mmol/L (3.3-5.1); Sodium 144 mmol/L (135-145); Triglycerides 156 mg/dL (<150)
[2024-06-21 10:34] LABS: Estimated Average Glucose 126 mg/dL; Hemoglobin A1C 152.1627 umol/L
== END 2024-06-21 08:48 | disposition home or self-care (01) ==
LOC: HO.HMGCLDS 08:47
PROVIDERS: PCP Internal Medicine; Visit Provider Internal Medicine
DX: Z00.00 Encounter for general adult medical examination without abnormal findings (principal); R73.9 Hyperglycemia, unspecified; I10 Essential (primary) hypertension; E78.5 Hyperlipidemia, unspecified
CPT/HCPCS: 36415; 80053; 80061; 82043; 82570; 83036; 85025

== ENCOUNTER 2024-06-26 08:25 | Outpatient (AMB) | payer MEDICARE, SELFPAY ==
--- NOTE | 2024-06-26 08:27 | A.OFFPC_ITS ---
Vital Signs 06/26/24 08:28 Height 5 ft 2 in Weight 200 lb BMI 36.6 BP 126/86 Blood Pressure Location Rt brachial Position Sitting Respiration 20 Pulse 99 Pulse Source Pulse Oximeter Temp 98.0 F Temp Source Oral Pulse Oximetry (%) 96 Oxygen Delivery Method Room Air Intake Visit Reasons: Annual PE Intake Note: Pt is here today for PE. Allergies No Known Allergies Allergy (Verified 12/12/23 11:28) Medication List - Last Reconciled 06/26/24 by Shelly Lopez MD atorvastatin 40 mg PO DAILY lisinopril 30 mg PO DAILY metoprolol succinate ER 50 mg PO DAILY Tobacco use date assessed: 06/26/24 Fall risk assessment: No Falls in past year Last assessed Fall Risk: 06/26/24 Dental Screening Dental Screen Date: 06/26/24 Did you have a dental visit in the last 12 months?: Yes Did you have a dental problem in the last 6 months where you did not have access to dental care?: No Was dental information given to patient?: Patient has dentist HPI Annual PE HPI Details Patient presents for physical. She has been decreasing caloric intake, increasing physical activity for the last 6 months and has been unable to lose weight. She would like to try GLP 1 agonist to facilitate weight loss. [facility] Medical History (Updated 06/26/24 @ 08:59 by Shelly Lopez MD) Dysthymia Shoulder pain, left DJD (degenerative joint disease), cervical Normal colonoscopy Mammogram normal Hyperglycemia HTN (hypertension) Hyperlipemia Surgical History History of hysterectomy Family History Father No problems noted. Mother History of CVA (cerebrovascular accident) Daughter No problems noted. Daughter No problems noted. Social History Housing: House Alcohol intake: never Patient Tobacco Use Status: Former Tobacco user (6 months ago) Cigarettes Per Day: 12 Years Smoked: started when 23 e-Cigarette/Vaping Use: Never Used Second Hand Smoke Exposure: No service: No Current occupational status: retired Cognitive needs: No Hearing needs: No Vision needs: Yes Questionnaire PHQ-9 Over the last 2 weeks, how often have you been bothered by any of the following problems? 1. Little interest or pleasure in doing things: not at all 2. Feeling down, depressed, or hopeless: not at all 3. Trouble falling or staying asleep, or sleeping too much: not at all 4. Feeling tired or having little energy: several days 5. Poor appetite or overeating: not at all 6. Feeling bad about yourself - or that you are a failure or have let yourself or your family down: not at all 7. Trouble concentrating on things, such as reading the newspaper or watching television: not at all 8. Moving or speaking so slowly that other people could have noticed. Or the opposite - being so fidgety or restless that you have been moving around a lot more than usual: not at all 9. Thoughts that you would be better off or of hurting yourself in some way: not at all Total score: 1 Depression Screening Interpretation: Negative Depression Screening Done: Yes 67106 - PHQ-9 Billing: Yes Source: Developed by Drs. Petey Hernandez, Anabel Cr, Tha Townsend and colleagues, with an educational rand from [employer]. Thrive Questionnaire Date Thrive assessed: 06/26/24 I am a: Patient What is your living situation today?: I have a steady place to live Within the past 12 months, did the food you bought not last and you didn't have the money to get more?: Never true Within the past 12 months, did you worry whether your food would run out before you got money to buy more?: Never true Do you have trouble paying for medicines?: No Do you have trouble getting transportation to medical appointments?: No Do you have trouble paying your heating and electricity bill?: No Do you have trouble taking care of your child, family member or friend?: No Do you have trouble with day-to-day activities such as bathing, preparing meals, shopping, managing finances, etc.?: No Are you currently unemployed and looking for a job?: No Are you interested in more education?: No Please select the resources that you would like help with: None THRIVE Score: 0 AUDIT C Alcohol Use Questionnaire (AUDIT-C) 1. How often do you have a drink containing alcohol?: Never 3. How often do you have six or more drinks on one occasion?: Never Total Score: 0 MANNIE-7 AMB Questionnaire MANNIE-7 Date MANNIE - 7 assessed: 06/26/24 Feeling nervous, anxious, or on edge: 0 = Not at all Not being able to stop or control worryin = Not at all Worrying too much about different things: 0 = Not at all Trouble relaxin = Not at all Being so restless that it is hard to sit still: 0 = Not at all Becoming easily annoyed or irritable: 0 = Not at all Feeling afraid as if something awful might happen: 0 = Not at all Total MANNIE-7 score (0-4 normal; 5-9 mild; 10-14 moderate; 15-21 severe): 0 Source: Developed by Drs. Petey Hernandez, Anabel Cr, Tha Townsend and colleagues, with an educational rand from [employer]. MANNIE-7 Assessment Billing MANNIE-7 Assessment Tool: MANNIE-7 Assessment 26327 Review of Systems Const All systems reviewed & are unremarkable except as noted in HPI and below Eyes Reports no additional complaints ENT Reports no additional complaints Card Reports no additional complaints Resp Reports no additional complaints GI Reports no additional complaints Reports no additional complaints Physical exam (Primary Care) Vital Signs: Last Vital Signs Temp 98.0 F 06/26/24 08:28 Pulse 99 06/26/24 08:28 Resp 20 06/26/24 08:28 BP 126/86 06/26/24 08:28 Pulse Ox 96 06/26/24 08:28 Oxygen Delivery Method Room Air 06/26/24 08:28 BMI result Body Mass Index 36.6 Tobacco/Smoking Status: Tobacco use Status Tobacco use date assessed 06/26/24 06/26/24 08:36 Patient Tobacco Use Status Former Tobacco user (6 06/26/24 08:36 months ago) Tobacco use type 12/13/22 09:18 e-Cigarette/Vaping Use Never Used 06/26/24 08:36 PHQ-9: PHQ-9 Score PHQ-9: Total score 1 06/26/24 08:36 Depression Screening Interpretation: Negative Thrive Assessment: Date of Thrive Assessment Date Thrive assessed 06/26/24 06/26/24 08:36 Const General: no acute distress HENMT Head: Yes normal to inspection Ears: hearing grossly normal bilaterally Face and sinus: Yes normal facial exam Mouth: Normal oral and palatal mucosa present Eyes General: appearance normal, both eyes and all related structures Neck Neck: Yes supple Resp Effort & Inspection: normal respiratory effort Auscultation: clear to auscultation bilaterally Cardio Rhythm: regular rhythm Heart sounds: S1 normal heart sound present and S2 normal heart sound present GI Inspection: Yes normal to inspection Palpation (GI): Soft to palpation Percussion: Yes normal to percussion Auscultation: normal bowel sounds Coding Level of Care Code Est Pt Prev Care >65y(46554) Diagnoses Hyperglycemia R73.9 HTN (hypertension) I10 Hyperlipemia E78.5 Annual physical exam Z00.00 Additional Codes MANNIE-7 Assessment Billing - MANNIE-7 Assessment Tool: MANNIE-7 Assessment [id number] ([id number]) PHQ-9 - 40021 - PHQ-9 Billing: Yes ([id number]) Assessment & Plan Assessment & Plan (1) Hyperglycemia: Comment: A1C is 5.6, cont ADA diet, exercise Code(s): R73.9 - Hyperglycemia, unspecified Category: Medical Plan: A1c is 6.0. ADA diet increase exercise weight loss discussed with the patient. She will check her insurance for coverage of GLP 1 agonist (2) HTN (hypertension): Code(s): I10 - Essential (primary) hypertension Category: Medical Plan: Continue current medications (3) Hyperlipemia: Code(s): E78.5 - Hyperlipidemia, unspecified Category: Medical Plan: Continue statin (4) Annual physical exam: Code(s): Z00.00 - Encounter for general adult medical examination without abnormal findings Category: Medical Plan: Well-balanced diet regular physical activity weight loss discussed with the patient. She is up-to-date with the mammogram and had negative Cologuard this year Orders: Orders Comprehensive [place]. Panel Fast 6 Months E78.5 - Hyperlipidemia, unspecified, I10 - Essential (primary) hypertension, R73.9 - Hyperglycemia, unspecified, Z00.00 - Encounter for general adult medical examination without abnormal findings Complete Blood Count Auto Diff 6 Months E78.5 - Hyperlipidemia, unspecified, I10 - Essential (primary) hypertension, R73.9 - Hyperglycemia, unspecified, Z00.00 - Encounter for general adult medical examination without abnormal findings Hemoglobin A1c 6 Months E78.5 - Hyperlipidemia, unspecified, I10 - Essential (primary) hypertension, R73.9 - Hyperglycemia, unspecified, Z00.00 - Encounter for general adult medical examination without abnormal findings Microalbumin, Random (w Creat) 6 Months E78.5 - Hyperlipidemia, unspecified, I10 - Essential (primary) hypertension, R73.9 - Hyperglycemia, unspecified, Z00.00 - Encounter for general adult medical examination without abnormal findings Lipid Panel 6 Months E78.5 - Hyperlipidemia, unspecified, I10 - Essential (primary) hypertension, R73.9 - Hyperglycemia, unspecified, Z00.00 - Encounter for general adult medical examination without abnormal findings Medications: Refilled atorvastatin 40 mg PO DAILY 90 tabs 3RF lisinopril 30 mg PO DAILY 90 tabs 3RF metoprolol succinate ER 50 mg PO DAILY 90 tabs 3RF
[2024-06-26 08:28] VITALS: BP 126/86; PULSE 99; RESP 20; TEMP 36.7; O2SAT 96; BMI 36.6
== END 2024-06-26 09:03 | disposition home or self-care (01) ==
LOC: HO.HMCC 08:26
PROVIDERS: PCP Internal Medicine; Visit Provider Internal Medicine
DX: R73.9 Hyperglycemia, unspecified (principal); I10 Essential (primary) hypertension; E78.5 Hyperlipidemia, unspecified; Z00.00 Encounter for general adult medical examination without abnormal findings

== ENCOUNTER → 2024-06-26 08:25 | Outpatient (BNVA) | payer MEDICARE, SELFPAY | PROVIDERS: PCP Internal Medicine; Visit Provider Internal Medicine | DX: Z00.00 Encounter for general adult medical examination without abnormal findings (principal); R73.9 Hyperglycemia, unspecified; E78.5 Hyperlipidemia, unspecified; I10 Essential (primary) hypertension | CPT/HCPCS: 96127; 99397 ==

== ENCOUNTER 2024-12-22 07:55 | Outpatient (REF) | payer MEDICARE, SELFPAY ==
--- OUTSIDE RECORDS SUMMARY | 2024-12-22 07:57 | XMS_ITS | Patient Health Record ---
Author Organization [facility] [address] Address [address] [place] [address] Care Team Providers Care Construction Project Mgr Name Role Phone JUDY GU Unavailable [phone] Allergies No Known Allergies Reason For Referral Diagnosis 1 Obesity (E66.9) Referring Provider First Name Shelly Referring Provider Last Name Jessica Referred Provider Specialty Weight Manag ement Referral Priority Routine Medications Medication SIG (Take, Route, Frequency, Duration) Notes Start Date End Date Status Metoprolol Succinate ER 50 MG TAKE 1 TABLET BY MOUTH DAILY Oral; Duration: 90 Days Active Atorvastatin Calcium 40 MG TAKE 1 TABLET BY MOUTH DAILY Oral; Duration: 90 Days Active Lisinopril 30 MG TAKE 1 TABLET BY ERASMO TH DAILY Oral; Duration: 90 Days Active Zepbound 2.5 MG/0.5ML Inject 2.5mg Subcu taneous once weekly; Duration: 30 days 11/23/2024 Active Problems Problem Type SNOMED Code ICD Code Onset Dates Problem Status W/U Status Risk Notes Problem Prediabetes (571220851) Prediabetes (R73.03) Active confirmed Problem Essential hypertensi on (26703403) Essential hypertension (I10) Active confirmed Problem Obesity (286572945) Obesity (BMI 30-39.9) (E66.9) Active confirmed Problem Obese class II (482332165109400) BMI 38.0-38.9,adult (Z68.38) Active confirmed Problem hypercholesterolemia (disorder) (50625687) Hypercholesteremia (E78.00) Active confirmed Problem Obesity (342642519) Obesity (E66.9) Active conf irmed Vital Signs Heart Rate 91 /min 11/23/2024 Oximetry 96 % 11/23/2024 Blood pressure diastolic 82 mm Hg 11/23/2024 Height 61 in 11/23/2024 Blood pressure systolic 144 mm Hg 11/23/2024 Weight 203.1 lbs 11/23/2024 BMI 38.37 kg/m2 11/23/2024 Encounters Encounter Location Date Provider Diagnosis [facility] [address] [facility] [address] [place] [address] 11/23/2024 JUDY GU Obesity (BMI 30-39.9 ) E66.9 ; BMI 38.0-38.9,adult Z68.38 ; Prediabetes R73.03 ; Essential hypertension I10 ; Hypercholesteremia E78.00 and Nutritional counseling Z71.3 [facility] [address] [facility] [address] [place] [address] 11/23/2024 JUDY BRITTANIE Assessments Encounter Date Diagnosis (ICD Code) Assessment Notes Treatment Notes Treatment Clinical Notes Section Notes 11/23/2024 Obesity (BMI 30-39.9) (ICD-10 - E66.9) Autumn is a 74-year-old female with a PMH of HTN, HLD, prediabetes (A1c 6.0%) that presents accompanied by her daughter Beatrice (who assists with translation) for weight management consultation. Patient was reassured and welcomed to the practice. Discussed [facility] holistic and medical approach to weight loss with emphasis on lifestyle modification. Patient is educated that a healthy lifestyle aids in combating obesity as well as reducing the risk of developing obesity-related medical complications including but not limited to diabetes and cardiovascular disease. Detailed education provided about taking steps to initiate sustainable lifestyle changes including incorporating regular physical activity, making healthy diet choices, and prioritizing mental health. Information provided about literature including The Food Rules by Kaz Workman and Eat Fat Get Lean by Dr Taiwo Marc. Handouts including lifestyle checklist, protein content of food, low calorie snacks, and cholesterol information sheet provided. Diagnostic testing/ SECA scale offered. Discussed the importance of regular SECA scale measurements to ensure healthy weight loss. 11/23/2024: Weight: 203.1, BMI: 38.4. Reviewed SECA/goals for implementing sustainable lifestyle changes. Patient is encouraged to increase physical activity, goal 8-10k steps/day. Also discussed the importance of strength training with proper safety/body mechanics for maintenance of muscle mass/bone health. Patient encouraged to drink 60-80oz water/day. Reviewed nutrition, recommending food diary x 1 week to ensure adequate caloric/protein intake. Goal of 80-100g protein/day. Reviewed risks, benefits, and side effects of weight management medications including phentermine, Topamax, Contrave, metformin, and GLP-1 agonist. Patient interested in GLP-1/GIP agonist Zepbound. Denies personal/family history of medullary thyroid cancer/M EN syndrome. Rx for Zepbound 2.5 mg sent to pharmacy. Reviewed proper use, administration, and expectations for PA process/insurance coverage. After consultation and careful review of medical history, this patient would benefit from Zepbound based off of the following criteria met: Patient is over the age of 18 with a BMI of 38.4. Additional comorbidities include HTN, HLD, and prediabetes (A1c 6%). patient has trialed other methods of weight loss including improving diet and exercise without success. This medication is prescribed by or in consultation with a board-certified obesity and weight management physician (Dr. Adrien Watters or Dr. Scout Watters). All questions answered to the patient's satisfaction. Patient demonstrates understanding of diagnosis and treatments discussed. Follow-up at next scheduled appointment, sooner should any questions/concerns arise. Case discussed with collaborating physician Dario Watters who has reviewed the assessment/plan. Chart, medications, labs, and vital signs reviewed. Dictation completed with the use of [employer] voice recognition software, prone to medical misidentifications and grammatical errors. All errors are unintentional. Although the practitioner does try to identify and correct errors, some may be present. Please do not hesitate to contact the practitioner for clarification. Total time was 60 minutes spent with greater than 50% on coordination of care and patient education. 11/23/2024 BMI 38.0-38.9,adult (ICD-10 - Z68.38) Autumn is a 74-year-old female with a PMH of HTN, HLD, prediabetes (A1c 6.0%) that presents accompanied by her daughter Beatrice (who assists with translation) for weight management consultation. Patient was reassured and welcomed to the practice. Discussed [facility] holistic and medical approach to weight loss with emphasis on lifestyle modification. Patient is educated that a healthy lifestyle aids in combating obesity as well as reducing the risk of developing obesity-related medical complications including but not limited to diabetes and cardiovascular disease. Detailed education provided about taking steps to initiate sustainable lifestyle changes including incorporating regular physical activity, making healthy diet choices, and prioritizing mental health. Information provided about literature including The Food Rules by Kaz Workman and Eat Fat Get Lean by Dr Taiwo Marc. Handouts including lifestyle checklist, protein content of food, low calorie snacks, and cholesterol information sheet provided. Diagnostic testing/ SECA scale offered. Discussed the importance of regular SECA scale measurements to ensure healthy weight loss. 11/23/2024: Weight: 203.1, BMI: 38.4. Reviewed SECA/goals for implementing sustainable lifestyle changes. Patient is encouraged to increase physical activity, goal 8-10k steps/day. Also discussed the importance of strength training with proper safety/body mechanics for maintenance of muscle mass/bone health. Patient encouraged to drink 60-80oz water/day. Reviewed nutrition, recommending food diary x 1 week to ensure adequate caloric/protein intake. Goal of 80-100g protein/day. Reviewed risks, benefits, and side effects of weight management medications including phentermine, Topamax, Contrave, metformin, and GLP-1 agonist. Patient interested in GLP-1/GIP agonist Zepbound. Denies personal/family history of medullary thyroid cancer/M EN syndrome. Rx for Zepbound 2.5 mg sent to pharmacy. Reviewed proper use, administration, and expectations for PA process/insurance coverage. After consultation and careful review of medical history, this patient would benefit from Zepbound based off of the following criteria met: Patient is over the age of 18 with a BMI of 38.4. Additional comorbidities include HTN, HLD, and prediabetes (A1c 6%). patient has trialed other methods of weight loss including improving diet and exercise without success. This medication is prescribed by or in consultation with a board-certified obesity and weight management physician (Dr. Adrien Watters or Dr. Scout Watters). All questions answered to the patient's satisfaction. Patient demonstrates understanding of diagnosis and treatments discussed. Follow-up at next scheduled appointment, sooner should any questions/concerns arise. Case discussed with collaborating physician Dario Watters who has reviewed the assessment/plan. Chart, medications, labs, and vital signs reviewed. Dictation completed with the use of [employer] voice recognition software, prone to medical misidentifications and grammatical errors. All errors are unintentional. Although the practitioner does try to identify and correct errors, some may be present. Please do not hesitate to contact the practitioner for clarification. Total time was 60 minutes spent with greater than 50% on coordination of care and patient education. 11/23/2024 Prediabetes (ICD-10 - R73.03) Autumn is a 74-year-old female with a PMH of HTN, HLD, prediabetes (A1c 6.0%) that presents accompanied by her daughter Beatrice (who assists with translation) for weight management consultation. Patient was reassured and welcomed to the practice. Discussed [facility] holistic and medical approach to weight loss with emphasis on lifestyle modification. Patient is educated that a healthy lifestyle aids in combating obesity as well as reducing the risk of developing obesity-related medical complications including but not limited to diabetes and cardiovascular disease. Detailed education provided about taking steps to initiate sustainable lifestyle changes including incorporating regular physical activity, making healthy diet choices, and prioritizing mental health. Information provided about literature including The Food Rules by Kaz Workman and Eat Fat Get Lean by Dr Taiwo Marc. Handouts including lifestyle checklist, protein content of food, low calorie snacks, and cholesterol information sheet provided. Diagnostic testing/ SECA scale offered. Discussed the importance of regular SECA scale measurements to ensure healthy weight loss. 11/23/2024: Weight: 203.1, BMI: 38.4. Reviewed SECA/goals for implementing sustainable lifestyle changes. Patient is encouraged to increase physical activity, goal 8-10k steps/day. Also discussed the importance of strength training with proper safety/body mechanics for maintenance of muscle mass/bone health. Patient encouraged to drink 60-80oz water/day. Reviewed nutrition, recommending food diary x 1 week to ensure adequate caloric/protein intake. Goal of 80-100g protein/day. Reviewed risks, benefits, and side effects of weight management medications including phentermine, Topamax, Contrave, metformin, and GLP-1 agonist. Patient interested in GLP-1/GIP agonist Zepbound. Denies personal/family history of medullary thyroid cancer/M EN syndrome. Rx for Zepbound 2.5 mg sent to pharmacy. Reviewed proper use, administration, and expectations for PA process/insurance coverage. After consultation and careful review of medical history, this patient would benefit from Zepbound based off of the following criteria met: Patient is over the age of 20 with a BMI of 38.4. Additional comorbidities include HTN, HLD, and prediabetes (A1c 6%). patient has trialed other methods of weight loss including improving diet and exercise without success. This medication is prescribed by or in consultation with a board-certified obesity and weight management physician (Dr. Adrien Watters or Dr. Scout Watters). All questions answered to the patient's satisfaction. Patient demonstrates understanding of diagnosis and treatments discussed. Follow-up at next scheduled appointment, sooner should any questions/concerns arise. Case discussed with collaborating physician Dario Watters who has reviewed the assessment/plan. Chart, medications, labs, and vital signs reviewed. Dictation completed with the use of [employer] voice recognition software, prone to medical misidentifications and grammatical errors. All errors are unintentional. Although the practitioner does try to identify and correct errors, some may be present. Please do not hesitate to contact the practitioner for clarification. Total time was 60 minutes spent with greater than 50% on coordination of care and patient education. 11/23/2024 Essential hypertension (ICD-10 - I10) Autumn is a 74-year-old female with a PMH of HTN, HLD, prediabetes (A1c 6.0%) that presents accompanied by her daughter Beatrice (who assists with translation) for weight management consultation. Patient was reassured and welcomed to the practice. Discussed [facility] holistic and medical approach to weight loss with emphasis on lifestyle modification. Patient is educated that a healthy lifestyle aids in combating obesity as well as reducing the risk of developing obesity-related medical complications including but not limited to diabetes and cardiovascular disease. Detailed education provided about taking steps to initiate sustainable lifestyle changes including incorporating regular physical activity, making healthy diet choices, and prioritizing mental health. Information provided about literature including The Food Rules by Kaz Workman and Eat Fat Get Lean by Dr Taiwo Marc. Handouts including lifestyle checklist, protein content of food, low calorie snacks, and cholesterol information sheet provided. Diagnostic testing/ SECA scale offered. Discussed the importance of regular SECA scale measurements to ensure healthy weight loss. 11/23/2024: Weight: 203.1, BMI: 38.4. Reviewed SECA/goals for implementing sustainable lifestyle changes. Patient is encouraged to increase physical activity, goal 8-10k steps/day. Also discussed the importance of strength training with proper safety/body mechanics for maintenance of muscle mass/bone health. Patient encouraged to drink 60-80oz water/day. Reviewed nutrition, recommending food diary x 1 week to ensure adequate caloric/protein intake. Goal of 80-100g protein/day. Reviewed risks, benefits, and side effects of weight management medications including phentermine, Topamax, Contrave, metformin, and GLP-1 agonist. Patient interested in GLP-1/GIP agonist Zepbound. Denies personal/family history of medullary thyroid cancer/M EN syndrome. Rx for Zepbound 2.5 mg sent to pharmacy. Reviewed proper use, administration, and expectations for PA process/insurance coverage. After consultation and careful review of medical history, this patient would benefit from Zepbound based off of the following criteria met: Patient is over the age of 18 with a BMI of 38.4. Additional comorbidities include HTN, HLD, and prediabetes (A1c 6%). patient has trialed other methods of weight loss including improving diet and exercise without success. This medication is prescribed by or in consultation with a board-certified obesity and weight management physician (Dr. Adrien Watters or Dr. Scout Watters). All questions answered to the patient's satisfaction. Patient demonstrates understanding of diagnosis and treatments discussed. Follow-up at next scheduled appointment, sooner should any questions/concerns arise. Case discussed with collaborating physician Dario Watters who has reviewed the assessment/plan. Chart, medications, labs, and vital signs reviewed. Dictation completed with the use of [employer] voice recognition software, prone to medical misidentifications and grammatical errors. All errors are unintentional. Although the practitioner does try to identify and correct errors, some may be present. Please do not hesitate to contact the practitioner for clarification. Total time was 60 minutes spent with greater than 50% on coordination of care and patient education. 11/23/2024 Hypercholesteremia (ICD-10 - E78.00) Autumn is a 74-year-old female with a PMH of HTN, HLD, prediabetes (A1c 6.0%) that presents accompanied by her daughter Beatrice (who assists with translation) for weight management consultation. Patient was reassured and welcomed to the practice. Discussed [facility] holistic and medical approach to weight loss with emphasis on lifestyle modification. Patient is educated that a healthy lifestyle aids in combating obesity as well as reducing the risk of developing obesity-related medical complications including but not limited to diabetes and cardiovascular disease. Detailed education provided about taking steps to initiate sustainable lifestyle changes including incorporating regular physical activity, making healthy diet choices, and prioritizing mental health. Information provided about literature including The Food Rules by Kaz Workman and Eat Fat Get Lean by Dr Taiwo Marc. Handouts including lifestyle checklist, protein content of food, low calorie snacks, and cholesterol information sheet provided. Diagnostic testing/ SECA scale offered. Discussed the importance of regular SECA scale measurements to ensure healthy weight loss. 11/23/2024: Weight: 203.1, BMI: 38.4. Reviewed SECA/goals for implementing sustainable lifestyle changes. Patient is encouraged to increase physical activity, goal 8-10k steps/day. Also discussed the importance of strength training with proper safety/body mechanics for maintenance of muscle mass/bone health. Patient encouraged to drink 60-80oz water/day. Reviewed nutrition, recommending food diary x 1 week to ensure adequate caloric/protein intake. Goal of 80-100g protein/day. Reviewed risks, benefits, and side effects of weight management medications including phentermine, Topamax, Contrave, metformin, and GLP-1 agonist. Patient interested in GLP-1/GIP agonist Zepbound. Denies personal/family history of medullary thyroid cancer/M EN syndrome. Rx for Zepbound 2.5 mg sent to pharmacy. Reviewed proper use, administration, and expectations for PA process/insurance coverage. After consultation and careful review of medical history, this patient would benefit from Zepbound based off of the following criteria met: Patient is over the age of 20 with a BMI of 38.4. Additional comorbidities include HTN, HLD, and prediabetes (A1c 6%). patient has trialed other methods of weight loss including improving diet and exercise without success. This medication is prescribed by or in consultation with a board-certified obesity and weight management physician (Dr. Adrien Watters or Dr. Scout Watters). All questions answered to the patient's satisfaction. Patient demonstrates understanding of diagnosis and treatments discussed. Follow-up at next scheduled appointment, sooner should any questions/concerns arise. Case discussed with collaborating physician Dario Watters who has reviewed the assessment/plan. Chart, medications, labs, and vital signs reviewed. Dictation completed with the use of [employer] voice recognition software, prone to medical misidentifications and grammatical errors. All errors are unintentional. Although the practitioner does try to identify and correct errors, some may be present. Please do not hesitate to contact the practitioner for clarification. Total time was 60 minutes spent with greater than 50% on coordination of care and patient education. 11/23/2024 Nutritional counseling (ICD-10 - Z71.3) Autumn is a 74-year-old female with a PMH of HTN, HLD, prediabetes (A1c 6.0%) that presents accompanied by her daughter Beatrice (who assists with translation) for weight management consultation. Patient was reassured and welcomed to the practice. Discussed [facility] holistic and medical approach to weight loss with emphasis on lifestyle modification. Patient is educated that a healthy lifestyle aids in combating obesity as well as reducing the risk of developing obesity-related medical complications including but not limited to diabetes and cardiovascular disease. Detailed education provided about taking steps to initiate sustainable lifestyle changes including incorporating regular physical activity, making healthy diet choices, and prioritizing mental health. Information provided about literature including The Food Rules by Kaz Workman and Eat Fat Get Lean by Dr Taiwo Marc. Handouts including lifestyle checklist, protein content of food, low calorie snacks, and cholesterol information sheet provided. Diagnostic testing/ SECA scale offered. Discussed the importance of regular SECA scale measurements to ensure healthy weight loss. 11/23/2024: Weight: 203.1, BMI: 38.4. Reviewed SECA/goals for implementing sustainable lifestyle changes. Patient is encouraged to increase physical activity, goal 8-10k steps/day. Also discussed the importance of strength training with proper safety/body mechanics for maintenance of muscle mass/bone health. Patient encouraged to drink 60-80oz water/day. Reviewed nutrition, recommending food diary x 1 week to ensure adequate caloric/protein intake. Goal of 80-100g protein/day. Reviewed risks, benefits, and side effects of weight management medications including phentermine, Topamax, Contrave, metformin, and GLP-1 agonist. Patient interested in GLP-1/GIP agonist Zepbound. Denies personal/family history of medullary thyroid cancer/M EN syndrome. Rx for Zepbound 2.5 mg sent to pharmacy. Reviewed proper use, administration, and expectations for PA process/insurance coverage. After consultation and careful review of medical history, this patient would benefit from Zepbound based off of the following criteria met: Patient is over the age of 20 with a BMI of 38.4. Additional comorbidities include HTN, HLD, and prediabetes (A1c 6%). patient has trialed other methods of weight loss including improving diet and exercise without success. This medication is prescribed by or in consultation with a board-certified obesity and weight management physician (Dr. Adrien Watters or Dr. Scout Watters). All questions answered to the patient's satisfaction. Patient demonstrates understanding of diagnosis and treatments discussed. Follow-up at next scheduled appointment, sooner should any questions/concerns arise. Case discussed with collaborating physician Dario Watters who has reviewed the assessment/plan. Chart, medications, labs, and vital signs reviewed. Dictation completed with the use of [employer] voice recognition software, prone to medical misidentifications and grammatical errors. All errors are unintentional. Although the practitioner does try to identify and correct errors, some may be present. Please do not hesitate to contact the practitioner for clarification. Total time was 60 minutes spent with greater than 50% on coordination of care and patient education. Plan Of Treatment No Information Insurance Providers Payer Name Payer Address Payer Phone Subscriber Number Group Number Insured Name Patient Relationship to Insured Coverage Start Date Coverage End Date [facility] Medicare Advantage [address] [place] [address] [phone] [id number] Autumn Arambula Self - patient is the insured Medicare Part B J14 [address] [place] [address] [id number] Autumn Arambula Self - patient is the insured 8 Medical (General) History Surgical History Surgery Date(Month/Year) Hysterectomy Lumpectomy
[2024-12-22 11:10] LABS: MANUAL DIFF FLAG NO
[2024-12-22 11:16] LABS: Hematocrit 38.9 % (37.0-47.0); Hemoglobin 13.0 g/dl (12.0-16.0); Imm Gran Abs Auto 0.01 X10*3/uL (0.00-0.03); Imm Gran Pct Auto 0.2 % (0.0-0.4); Lymphocytes Absolute Auto 2.3 X10*3/uL (1.2-4.9); Mean Corpuscular HGB Conc 33.4 g/dl (31.0-35.0); Mean Corpuscular Hemoglobin 31.3 pg (27.0-33.0); Mean Corpuscular Volume 93.5 fL (80.0-98.0); NRBC Abs Auto 0.000 X10*3/uL (0.0-0.012); NRBC Pct Auto 0.0 /100WBC (0.0-0.2); Platelet Count 254 X10*3/uL (160-400); Red Blood Count 4.16 X10*6/uL (4.20-5.50); White Blood Count 6.0 X10*3/uL (4.8-10.8)
[2024-12-22 11:28] LABS: Alanine Aminotransferase 47 U/L (0-31); Albumin Level 4.1 g/dL (3.5-5.0); Alkaline Phosphatase 113 U/L (39-117); Anion Gap 11 (12-20); Aspartate Amino Transferase 28 U/L (5-31); Blood Urea Nitrogen 24 mg/dL (9-16); Calcium 8.9 mg/dL (8.4-10.2); Carbon Dioxide 26 mmol/L (22-29); Chloride 110 mmol/L (96-108); Cholesterol 156 mg/dL (<200); Estimated Glomerular Filt Rate > 60; HDL Cholesterol 41 mg/dL (>40); Potassium 4.2 mmol/L (3.3-5.1); Sodium 143 mmol/L (135-145); Total Protein 6.6 g/dL (6.5-8.0); Triglycerides 94 mg/dL (<150)
[2024-12-22 12:27] LABS: Microalbum/Creatinine Ratio Ur 3.8 ug/mg cr (<30)
== END 2024-12-22 07:56 | disposition home or self-care (01) ==
LOC: HO.HMGCLDS 07:55
PROVIDERS: PCP Internal Medicine; Visit Provider Internal Medicine
DX: Z00.00 Encounter for general adult medical examination without abnormal findings (principal); I10 Essential (primary) hypertension; E78.5 Hyperlipidemia, unspecified; R73.9 Hyperglycemia, unspecified
CPT/HCPCS: 36415; 80053; 80061; 82043; 82570; 83036; 85025

== ENCOUNTER 2024-12-26 09:25 | Outpatient (AMB) | payer MEDICARE, SELFPAY ==
--- NOTE | 2024-12-26 09:28 | MHC.PC.OV ---
Vital Signs 12/26/24 09:29 Height 5 ft 2 in Weight 200 lb BMI 36.6 BP 138/80 Blood Pressure Location Rt brachial Position Sitting Respiration 20 Pulse 84 Pulse Source Pulse Oximeter Temp 98.4 F Temp Source Oral Pulse Oximetry (%) 95 Oxygen Delivery Method Room Air Intake Visit Reasons: 6 months f/up Intake Note: Patient is here today for 6 months follow up visit on labs. Allergies No Known Allergies Allergy (Verified 12/26/24 09:38) Medication List - Last Reconciled 12/26/24 by Shelly Lopez MD atorvastatin 40 mg PO DAILY lisinopril 30 mg PO DAILY metoprolol succinate ER 50 mg PO DAILY Tobacco use date assessed: 12/26/24 Fall risk assessment: No Falls in past year Last assessed Fall Risk: 12/26/24 Dental Screening Dental Screen Date: 06/26/24 HPI 6 months f/up HPI Details Pt presents for f/u HTN, hyperlipid, stable on meds. [facility] Medical History (Updated 12/26/24 @ 10:10 by Shelly Lopez MD) Dysthymia Shoulder pain, left DJD (degenerative joint disease), cervical Normal colonoscopy Mammogram normal Hyperglycemia HTN (hypertension) Hyperlipemia Surgical History History of hysterectomy Family History Father No problems noted. Mother History of CVA (cerebrovascular accident) Daughter No problems noted. Daughter No problems noted. Social History Housing: House Alcohol intake: never Patient Tobacco Use Status: Former Tobacco user (6 months ago) Cigarettes Per Day: 12 Years Smoked: started when 23 e-Cigarette/Vaping Use: Never Used Second Hand Smoke Exposure: No service: No Current occupational status: retired Cognitive needs: No Hearing needs: No Vision needs: Yes Questionnaire PHQ-9 Over the last 2 weeks, how often have you been bothered by any of the following problems? 1. Little interest or pleasure in doing things: not at all 2. Feeling down, depressed, or hopeless: not at all 3. Trouble falling or staying asleep, or sleeping too much: not at all 4. Feeling tired or having little energy: several days 5. Poor appetite or overeating: not at all 6. Feeling bad about yourself - or that you are a failure or have let yourself or your family down: not at all 7. Trouble concentrating on things, such as reading the newspaper or watching television: not at all 8. Moving or speaking so slowly that other people could have noticed. Or the opposite - being so fidgety or restless that you have been moving around a lot more than usual: not at all 9. Thoughts that you would be better off or of hurting yourself in some way: not at all Total score: 1 Depression Screening Interpretation: Negative Depression Screening Done: Yes Source: Developed by Drs. Petey Hernandez, Tha Carvalho and colleagues, with an educational rand from [employer]. Thrive Questionnaire Date Thrive assessed: 06/26/24 MANNIE-7 AMB Questionnaire MANNIE-7 Date MANNIE - 7 assessed: 06/26/24 Feeling nervous, anxious, or on edge: 0 = Not at all Not being able to stop or control worryin = Not at all Worrying too much about different things: 0 = Not at all Trouble relaxin = Not at all Being so restless that it is hard to sit still: 0 = Not at all Becoming easily annoyed or irritable: 0 = Not at all Feeling afraid as if something awful might happen: 0 = Not at all Total MANNIE-7 score (0-4 normal; 5-9 mild; 10-14 moderate; 15-21 severe): 0 Source: Developed by Drs. Petey Hernandez, Tha Carvalho and colleagues, with an educational rand from [employer]. Review of Systems Const All systems reviewed & are unremarkable except as noted in HPI and below ENT Reports no additional complaints Card Reports no additional complaints Resp Reports no additional complaints GI Reports no additional complaints Physical exam (Primary Care) Vital Signs: Last Vital Signs Temp 98.4 F 12/26/24 09:29 Pulse 84 12/26/24 09:29 Resp 20 12/26/24 09:29 BP 138/80 12/26/24 09:29 Pulse Ox 95 12/26/24 09:29 Oxygen Delivery Method Room Air 12/26/24 09:29 BMI result Body Mass Index 36.6 Tobacco/Smoking Status: Tobacco use Status Tobacco use date assessed 12/26/24 12/26/24 09:42 Patient Tobacco Use Status Former Tobacco user (6 12/26/24 09:29 months ago) Tobacco use type 12/13/22 09:18 e-Cigarette/Vaping Use Never Used 12/26/24 09:29 PHQ-9: PHQ-9 Score PHQ-9: Total score 1 12/26/24 10:03 Depression Screening Interpretation: Negative Thrive Assessment: Date of Thrive Assessment Date Thrive assessed 06/26/24 12/26/24 09:29 Const General: no acute distress HENMT Head: Yes normal to inspection Face and sinus: Yes normal facial exam Eyes General: appearance normal, both eyes and all related structures Resp Effort & Inspection: normal respiratory effort Auscultation: clear to auscultation bilaterally Cardio Rhythm: regular rhythm Heart sounds: S1 normal heart sound present and S2 normal heart sound present GI Inspection: Yes normal to inspection Palpation (GI): Soft to palpation Percussion: Yes normal to percussion Auscultation: normal bowel sounds Coding Level of Care Code Est Pt Level 4 (59900) Diagnoses Hypothyroid E03.9 Hyperlipemia E78.5 HTN (hypertension) I10 Assessment & Plan Assessment & Plan (1) Hypothyroid: Code(s): E03.9 - Hypothyroidism, unspecified Category: Medical Plan: Monitor TSH level (2) Hyperlipemia: Code(s): E78.5 - Hyperlipidemia, unspecified Category: Medical Plan: Continue statin (3) HTN (hypertension): Code(s): I10 - Essential (primary) hypertension Category: Medical Plan: Increase lisinopril to 40 mg and continue metoprolol , low-sodium diet regular exercise and weight loss discussed with the patient. follow-up in 2 months Orders: Orders Triiodothyronine T3 Free Today E03.9 - Hypothyroidism, unspecified Complete Blood Count Auto Diff 6 Months E03.9 - Hypothyroidism, unspecified, E78.5 - Hyperlipidemia, unspecified, I10 - Essential (primary) hypertension, R73.9 - Hyperglycemia, unspecified Hemoglobin A1c 6 Months E03.9 - Hypothyroidism, unspecified, E78.5 - Hyperlipidemia, unspecified, I10 - Essential (primary) hypertension, R73.9 - Hyperglycemia, unspecified Lipid Panel 6 Months E03.9 - Hypothyroidism, unspecified, E78.5 - Hyperlipidemia, unspecified, I10 - Essential (primary) hypertension, R73.9 - Hyperglycemia, unspecified TSH reflex Free T4 Today E03.9 - Hypothyroidism, unspecified Comprehensive [place]. Panel Fast 6 Months E03.9 - Hypothyroidism, unspecified, E78.5 - Hyperlipidemia, unspecified, I10 - Essential (primary) hypertension, R73.9 - Hyperglycemia, unspecified Microalbumin, Random (w Creat) 6 Months E03.9 - Hypothyroidism, unspecified, E78.5 - Hyperlipidemia, unspecified, I10 - Essential (primary) hypertension, R73.9 - Hyperglycemia, unspecified TSH reflex Free T4 6 Months E03.9 - Hypothyroidism, unspecified, E78.5 - Hyperlipidemia, unspecified, I10 - Essential (primary) hypertension, R73.9 - Hyperglycemia, unspecified Basic Metabolic Panel 2 Weeks I10 - Essential (primary) hypertension Medications: New lisinopril 40 mg PO DAILY 90 tabs 1RF Discontinued lisinopril Discontinued Reason: Doctor's Order 30 mg PO DAILY 90 tabs 3RF
[2024-12-26 09:29] VITALS: BP 138/80; PULSE 84; RESP 20; TEMP 36.9; O2SAT 95; BMI 36.6
--- OUTSIDE RECORDS SUMMARY | 2024-12-26 10:15 | XMS_ITS | Patient Health Record ---
Author Organization [facility] [address] Address [address] [place] [address] Care Team Providers Care Table Games Floor Supervisor Name Role Phone JUDY GU Unavailable [phone] Allergies No Known Allergies Reason For Referral [...] Status W/U Status Risk Notes Problem Prediabetes (947250027) Prediabetes (R73.03) Active confirmed Problem Essential hypertensi on (54463679) Essential hypertension (I10) Active confirmed Problem Obesity (547162682) Obesity (BMI 30-39.9) (E66.9) Active confirmed Problem Obese class II (612610156279649) BMI 38.0-38.9,adult (Z68.38) Active confirmed Problem hypercholesterolemia (disorder) (34744728) Hypercholesteremia (E78.00) Active confirmed Problem Obesity (922029930) Obesity (E66.9) Active conf irmed Vital Signs Heart Rate 91 /min 11/23/2024 Oximetry 96 % 11/23/2024 Blood pressure diastolic 82 mm Hg 11/23/2024 Height 61 in 11/23/2024 Blood pressure systolic 144 mm Hg 11/23/2024 Weight 203.1 lbs 11/23/2024 BMI 38.37 kg/m2 11/23/2024 Encounters Encounter Location Date Provider Diagnosis [facility] [address] [facility] [address] [place] [address] 11/23/2024 JUDY GU Obesity (BMI 30-39.9 ) E66.9 ; BMI 38.0-38.9,adult Z68.38 ; Prediabetes R73.03 ; Essential hypertension I10 ; Hypercholesteremia E78.00 and Nutritional counseling Z71.3 [facility] [address] [facility] [address] [place] [address] 11/23/2024 JUDY BRITTANIE Assessments Encounter Date Diagnosis [...] reviewed. Dictation completed with the use of [employer] voice recognition software, prone to medical misidentifications [...] reviewed. Dictation completed with the use of [employer] voice recognition software, prone to medical misidentifications [...] reviewed. Dictation completed with the use of [employer] voice recognition software, prone to medical misidentifications [...] reviewed. Dictation completed with the use of [employer] voice recognition software, prone to medical misidentifications [...] reviewed. Dictation completed with the use of [employer] voice recognition software, prone to medical misidentifications [...] reviewed. Dictation completed with the use of [employer] voice recognition software, prone to medical misidentifications [...] Insured Coverage Start Date Coverage End Date [facility] Medicare Advantage [address] [place] [address] [phone] [id number] Autumn Arambula Self - patient is the insured Medicare Part B J14 [address] [place] [phone] [id number] Autumn Arambula Self - patient is the insured 8 Medical (General) History Surgical History Surgery Date(Month/Year) Hysterectomy Lumpectomy
== END 2024-12-26 10:16 | disposition home or self-care (01) ==
LOC: HO.HMCC 09:26
PROVIDERS: PCP Internal Medicine; Visit Provider Internal Medicine
DX: E03.9 Hypothyroidism, unspecified (principal); E78.5 Hyperlipidemia, unspecified; I10 Essential (primary) hypertension

== ENCOUNTER → 2024-12-26 09:25 | Outpatient (BNVA) | payer MEDICARE, SELFPAY | PROVIDERS: PCP Internal Medicine; Visit Provider Internal Medicine | DX: I10 Essential (primary) hypertension (principal); E78.5 Hyperlipidemia, unspecified; E03.9 Hypothyroidism, unspecified; R73.9 Hyperglycemia, unspecified; Z79.899 Other long term (current) drug therapy | CPT/HCPCS: 96127; 99212 ==

== ENCOUNTER 2025-03-07 08:37 | Outpatient (REF) | payer MEDICARE, SELFPAY ==
[2025-03-07 11:07] LABS: Anion Gap 11 (12-20); Blood Urea Nitrogen 21 mg/dL (9-16); Calcium 8.7 mg/dL (8.4-10.2); Carbon Dioxide 26 mmol/L (22-29); Chloride 111 mmol/L (96-108); Estimated Glomerular Filt Rate > 60; Potassium 3.9 mmol/L (3.3-5.1); Sodium 144 mmol/L (135-145)
== END 2025-03-07 08:38 ==
LOC: HO.HMGCLDS 08:37
PROVIDERS: PCP Internal Medicine; Visit Provider Internal Medicine
DX: I10 Essential (primary) hypertension (principal); E03.9 Hypothyroidism, unspecified
CPT/HCPCS: 36415; 80048; 84443; 84481

== ENCOUNTER 2025-03-11 11:39 | Outpatient (AMB) | payer MEDICARE, SELFPAY ==
--- NOTE | 2025-03-11 11:46 | A.OFFPC_ITS ---
Vital Signs 03/11/25 11:53 Height 5 ft 2 in Weight 200 lb BMI 36.6 BP 142/80 H Blood Pressure Location Lt brachial Position Sitting Respiration 19 Pulse 80 Pulse Source Pulse Oximeter Temp 98.1 F Temp Source Oral Pulse Oximetry (%) 96 Oxygen Delivery Method Room Air Intake Visit Reasons: 2 mo follow up Intake Note: Pt is here today for 2 months follow up visit. Allergies No Known Allergies Allergy (Verified 03/11/25 11:53) Medication List - Last Reconciled 03/11/25 by Shelly Lopez MD amlodipine 2.5 mg PO DAILY atorvastatin 40 mg PO DAILY lisinopril 40 mg PO DAILY metoprolol succinate ER 50 mg PO DAILY Tobacco use date assessed: 03/11/25 Fall risk assessment: No Falls in past year Last assessed Fall Risk: 03/11/25 Dental Screening Dental Screen Date: 06/26/24 HPI 2 mo follow up HPI Details Pt presents for f/u HTN and hyperlipid, stable on meds. PFSH Medical History Dysthymia Shoulder pain, left DJD (degenerative joint disease), cervical Normal colonoscopy Mammogram normal Hyperglycemia HTN (hypertension) Hyperlipemia Surgical History History of hysterectomy Family History Father No problems noted. Mother History of CVA (cerebrovascular accident) Daughter No problems noted. Daughter No problems noted. Social History Housing: House Alcohol intake: never Patient Tobacco Use Status: Former Tobacco user (6 months ago) Cigarettes Per Day: 12 Years Smoked: started when 23 Packs per year/per ci.00 e-Cigarette/Vaping Use: Never Used Second Hand Smoke Exposure: No service: No Current occupational status: retired Cognitive needs: No Hearing needs: No Vision needs: Yes Questionnaire Thrive Questionnaire Date Thrive assessed: 06/26/24 MANNIE-7 AMB Questionnaire MANNIE-7 Date MANNIE - 7 assessed: 06/26/24 Source: Developed by Drs. Petey Hernandez, Anabel Cr, Tha Townsend and colleagues, with an educational rand from [employer]. Review of Systems Const All systems reviewed & are unremarkable except as noted in HPI and below Eyes Reports no additional complaints ENT Reports no additional complaints Card Reports no additional complaints Resp Reports no additional complaints GI Reports no additional complaints Reports no additional complaints Physical exam (Primary Care) Vital Signs: Last Vital Signs Temp 98.1 F 03/11/25 11:53 Pulse 80 03/11/25 11:53 Resp 19 03/11/25 11:53 BP 142/80 H 03/11/25 11:53 Pulse Ox 96 03/11/25 11:53 Oxygen Delivery Method Room Air 03/11/25 11:53 BMI result Body Mass Index 36.6 Tobacco/Smoking Status: Tobacco use Status Tobacco use date assessed 03/11/25 03/11/25 11:54 Patient Tobacco Use Status Former Tobacco user (6 03/11/25 11:46 months ago) Tobacco use type 12/13/22 09:18 e-Cigarette/Vaping Use Never Used 03/11/25 11:46 Thrive Assessment: Date of Thrive Assessment Date Thrive assessed 06/26/24 03/11/25 11:46 Const General: no acute distress HENMT Head: Yes normal to inspection Throat: Yes posterior oropharynx normal Resp Effort & Inspection: normal respiratory effort Auscultation: clear to auscultation bilaterally Cardio Rhythm: regular rhythm Heart sounds: S1 normal heart sound present and S2 normal heart sound present Coding Level of Care Code Est Pt Level 4 (15232) Diagnoses HTN (hypertension) I10 Hyperlipemia E78.5 Assessment & Plan Assessment & Plan (1) HTN (hypertension): Code(s): I10 - Essential (primary) hypertension Category: Medical Plan: add Amlodipine 2.5 mg to Lisinopril and Metoprolol (2) Hyperlipemia: Code(s): E78.5 - Hyperlipidemia, unspecified Category: Medical Plan: cont Atorvastatin Medications: New amlodipine 2.5 mg PO DAILY 90 tabs 0RF
[2025-03-11 11:53] VITALS: BP 142/80; PULSE 80; RESP 19; TEMP 36.7; O2SAT 96; BMI 36.6
== END 2025-03-11 12:25 | disposition home or self-care (01) ==
LOC: HO.HMCC 11:40
PROVIDERS: PCP Internal Medicine; Visit Provider Internal Medicine
DX: I10 Essential (primary) hypertension (principal); E78.5 Hyperlipidemia, unspecified

== ENCOUNTER → 2025-03-11 11:39 | Outpatient (BNVA) | payer MEDICARE, SELFPAY | PROVIDERS: PCP Internal Medicine; Visit Provider Internal Medicine | DX: I10 Essential (primary) hypertension (principal); E78.5 Hyperlipidemia, unspecified | CPT/HCPCS: 99212 ==